=== PATIENT | male | born 1930 | race Caucasian/White ===

== ENCOUNTER 2018-01-07 12:20 | Inpatient (IN) ==
[2018-01-07] MEDS ORDERED: SODIUM CHLORIDE 0.9% 1,000 ML IV STA (12:52)
[2018-01-07] MEDS ORDERED: FUROSEMIDE 100 MG/10 ML VIAL IV STA (14:07)
[2018-01-07 14:18] LABS: Basophils % 0.2 % (0.0-0.8); Eosinophils % 0.5 % (0.00-10.9); Hematocrit 32.7 VOL% (42.0-52.0); Hemoglobin 10.1 GM/DL (14.0-18.0); Immature Granulocytes % 0.3 %; Immature Granulocytes Absolute 0.02 #; Lymphocytes # 0.7 10*3/uL (1.4-4.0); Lymphocytes % 11.1 % (21.2-54.2); Mean Corpuscular HGB Conc 30.9 GM/DL (32-36); Mean Corpuscular Hemoglobin 29 PG (27-34); Mean Corpuscular Volume 94.8 FL (87-102); Mean Platelet Volume 9.3 FL (9.6-12.0); Monocytes # 0.4 10*3/uL (0.11-0.8); Monocytes % 7.2 % (1.7-12.7); Neutrophils # 4.9 10*3/uL (1.4-7.4); Neutrophils % 80.7 % (38.7-73.9); Platelet Count 354 T/CUMM (130-400); Red Blood Count 3.45 MC/CUMM (3.8-5.5); Red Cell Distribution Width 13.2 % (9.3-17.3)
[2018-01-07 14:26] LABS: PT Patient Result 10.7 SECS; Partial Thromboplastin Time 27.1 SECS (0-40)
[2018-01-07] MEDS ORDERED: ACETAMINOPHEN 325 MG TABLET PO PRN (15:01)
[2018-01-07 15:55] LABS: Albumin 3.1 G/DL (3.4-5.0); Bilirubin,Total 0.6 MG/DL (0.2-1.0); Calcium 10.1 MG/DL (8.5-10.1); Osmolality,Calculated 288.4 MOS/KG (273-304); Potassium 5.1 MMOL/L (3.5-5.1); Total Protein 7.5 G/DL (6.4-8.3)
[2018-01-07 16:26] LABS: Apearance,Urine CLEAR (Clear); Bilirubin,Urine Negative (Negative); Blood, Urine Negative (Negative); Glucose,Urine (UA) Negative (Negative); Hyaline Casts,Urine 1 /LPF (0-3); Ketones,Urine Negative (Negative); Nitrite,Urine Negative (Negative); Protein,Urine Negative; Urine Color Yellow (Yellow); Urine Specific Gravity 1.011 (1.001-1.035); Urine Urobilinogen < 2.0 EU/DL (0.2-1.0); WBC,Urine <1 /HPF (0-6)
[2018-01-07] MEDS: SODIUM CHLORIDE 0.9% 1,000 ML IV SCH (18:38)
[2018-01-07] MEDS: ENOXAPARIN 40 MG/0.4 ML SYRINGE SUBCUT SCH (18:38)
[2018-01-08] MEDS: SODIUM CHLORIDE 0.9% 1,000 ML IV SCH ×3 (02:33→22:06)
[2018-01-08 06:06] LABS: Calcium 9.8 MG/DL (8.5-10.1); Osmolality,Calculated 287.3 MOS/KG (273-304)
[2018-01-08] MEDS ORDERED: DIAZEPAM 5 MG TABLET PO ONE (09:32)
[2018-01-08] MEDS ORDERED: MORPHINE 4 MG/1 ML VIAL IV ONE (09:35)
[2018-01-08] MEDS: MORPHINE 4 MG/1 ML VIAL IV PRN (10:07)
[2018-01-08] MEDS: predniSONE 5 MG TABLET PO SCH (12:08)
[2018-01-08] MEDS: GABAPENTIN 100 MG CAPSULE PO SCH ×2 (12:08→20:28)
[2018-01-08] MEDS: TAMSULOSIN 0.4 MG CAPSULE PO SCH ×2 (12:08→20:28)
[2018-01-08] MEDS: ATORVASTATIN 20 MG TABLET PO SCH (12:08)
[2018-01-08] MEDS: PANTOPRAZOLE 40 MG TABLET PO SCH ×2 (12:08→20:28)
[2018-01-08] MEDS: ENOXAPARIN 40 MG/0.4 ML SYRINGE SUBCUT SCH (17:30)
[2018-01-08] MEDS ORDERED: MIRTAZAPINE 30 MG TABLET PO SCH (21:00)
[2018-01-09 05:45] LABS: Basophils % 0.4 % (0.0-0.8); Eosinophils # 0.2 10*3/uL (0.0-0.87); Eosinophils % 3.2 % (0.00-10.9); Hematocrit 28.6 VOL% (42.0-52.0); Hemoglobin 8.8 GM/DL (14.0-18.0); Immature Granulocytes % 0.4 %; Immature Granulocytes Absolute 0.02 #; Lymphocytes # 1.2 10*3/uL (1.4-4.0); Lymphocytes % 26.2 % (21.2-54.2); Mean Corpuscular HGB Conc 30.8 GM/DL (32-36); Mean Corpuscular Hemoglobin 30 PG (27-34); Mean Corpuscular Volume 96.3 FL (87-102); Mean Platelet Volume 9.4 FL (9.6-12.0); Monocytes # 0.7 10*3/uL (0.11-0.8); Monocytes % 13.8 % (1.7-12.7); Neutrophils # 2.6 10*3/uL (1.4-7.4); Platelet Count 304 T/CUMM (130-400); Red Blood Count 2.97 MC/CUMM (3.8-5.5); Red Cell Distribution Width 13.4 % (9.3-17.3); White Blood Count 4.7 T/CUMM (4-12)
[2018-01-09 06:08] LABS: Calcium 9.1 MG/DL (8.5-10.1); Osmolality,Calculated 289.8 MOS/KG (273-304); Potassium 3.8 MMOL/L (3.5-5.1)
[2018-01-09] MEDS: SODIUM CHLORIDE 0.9% 1,000 ML IV SCH ×2 (06:14→20:31)
[2018-01-09] MEDS: predniSONE 5 MG TABLET PO SCH (09:14)
[2018-01-09] MEDS: TAMSULOSIN 0.4 MG CAPSULE PO SCH ×2 (09:15→20:32)
[2018-01-09] MEDS: ATORVASTATIN 20 MG TABLET PO SCH (09:15)
[2018-01-09] MEDS: GABAPENTIN 100 MG CAPSULE PO SCH ×2 (09:15→20:32)
[2018-01-09] MEDS: PANTOPRAZOLE 40 MG TABLET PO SCH ×2 (09:16→20:33)
[2018-01-09] MEDS: ENOXAPARIN 40 MG/0.4 ML SYRINGE SUBCUT SCH (15:58)
[2018-01-10] MEDS: PANTOPRAZOLE 40 MG TABLET PO SCH ×2 (09:09→21:10)
[2018-01-10] MEDS: ATORVASTATIN 20 MG TABLET PO SCH (09:09)
[2018-01-10] MEDS: GABAPENTIN 100 MG CAPSULE PO SCH ×2 (09:09→21:10)
[2018-01-10] MEDS: predniSONE 5 MG TABLET PO SCH (09:09)
[2018-01-10] MEDS: TAMSULOSIN 0.4 MG CAPSULE PO SCH ×2 (09:09→21:10)
[2018-01-10] MEDS: ENOXAPARIN 40 MG/0.4 ML SYRINGE SUBCUT SCH (16:57)
[2018-01-10] MEDS ORDERED: MAGNESIUM CITRATE 300 ML BOTTLE PO ONE (18:15)
[2018-01-11 06:44] LABS: Hematocrit 29.3 VOL% (42.0-52.0); Hemoglobin 9.1 GM/DL (14.0-18.0); Red Blood Count 3.08 MC/CUMM (3.8-5.5); White Blood Count 9.7 T/CUMM (4-12)
[2018-01-11 06:45] LABS: Basophils % 0.1 % (0.0-0.8); Eosinophils % 0.3 % (0.00-10.9); Immature Granulocytes % 0.5 %; Immature Granulocytes Absolute 0.05 #; Lymphocytes # 0.5 10*3/uL (1.4-4.0); Lymphocytes % 5.1 % (21.2-54.2); Mean Corpuscular HGB Conc 31.1 GM/DL (32-36); Mean Corpuscular Hemoglobin 30 PG (27-34); Mean Corpuscular Volume 95.1 FL (87-102); Mean Platelet Volume 9.1 FL (9.6-12.0); Monocytes # 0.5 10*3/uL (0.11-0.8); Monocytes % 5.2 % (1.7-12.7); Neutrophils # 8.6 10*3/uL (1.4-7.4); Neutrophils % 88.8 % (38.7-73.9); Platelet Count 315 T/CUMM (130-400); Red Cell Distribution Width 13.3 % (9.3-17.3)
[2018-01-11 07:14] LABS: Albumin 2.6 G/DL (3.4-5.0); Bilirubin,Total 0.6 MG/DL (0.2-1.0); Osmolality,Calculated 292.8 MOS/KG (273-304); Potassium 4.2 MMOL/L (3.5-5.1); Total Protein 6.5 G/DL (6.4-8.3)
[2018-01-11] MEDS: TAMSULOSIN 0.4 MG CAPSULE PO SCH ×2 (08:46→20:39)
[2018-01-11] MEDS: PANTOPRAZOLE 40 MG TABLET PO SCH ×2 (08:46→20:39)
[2018-01-11] MEDS: GABAPENTIN 100 MG CAPSULE PO SCH ×2 (08:46→20:38)
[2018-01-11] MEDS: predniSONE 5 MG TABLET PO SCH (08:46)
[2018-01-11] MEDS: ATORVASTATIN 20 MG TABLET PO SCH (08:46)
[2018-01-11] MEDS ORDERED: DEXAMETHASONE INJ 20 MG in SODIUM CHLORIDE 0.9% 50 ML IV ONE (11:16)
[2018-01-11] MEDS ORDERED: GRANISETRON 1 MG/1 ML VIAL IV SCH (11:30)
[2018-01-11] MEDS: ETOPOSIDE 120 MG in SODIUM CHLORIDE 0.9% 500 ML IV SCH (14:34)
[2018-01-11] MEDS: ENOXAPARIN 40 MG/0.4 ML SYRINGE SUBCUT SCH (14:48)
[2018-01-12 04:44] LABS: Hematocrit 27.9 VOL% (42.0-52.0); Hemoglobin 8.7 GM/DL (14.0-18.0); Immature Granulocytes % 0.6 %; Immature Granulocytes Absolute 0.05 #; Lymphocytes # 0.7 10*3/uL (1.4-4.0); Lymphocytes % 8.7 % (21.2-54.2); Mean Corpuscular HGB Conc 31.2 GM/DL (32-36); Mean Corpuscular Hemoglobin 30 PG (27-34); Mean Corpuscular Volume 95.2 FL (87-102); Mean Platelet Volume 9.5 FL (9.6-12.0); Monocytes # 0.5 10*3/uL (0.11-0.8); Monocytes % 5.6 % (1.7-12.7); Neutrophils % 85.1 % (38.7-73.9); Platelet Count 302 T/CUMM (130-400); Red Blood Count 2.93 MC/CUMM (3.8-5.5); Red Cell Distribution Width 13.2 % (9.3-17.3); White Blood Count 8.2 T/CUMM (4-12)
[2018-01-12 05:07] LABS: Uric Acid 6.3 MG/DL (3.5-7.2)
[2018-01-12 05:10] LABS: Albumin 2.6 G/DL (3.4-5.0); Bilirubin,Total 0.6 MG/DL (0.2-1.0); Calcium 9.4 MG/DL (8.5-10.1); Osmolality,Calculated 287.5 MOS/KG (273-304); Potassium 4.9 MMOL/L (3.5-5.1); Total Protein 6.9 G/DL (6.4-8.3)
[2018-01-12] MEDS ORDERED: CARBOPLATIN IV ONE (09:00)
[2018-01-12] MEDS ORDERED: SODIUM CHLORIDE 0.9% IV ONE (09:00)
[2018-01-12] MEDS: ATORVASTATIN 20 MG TABLET PO SCH (09:07)
[2018-01-12] MEDS: PANTOPRAZOLE 40 MG TABLET PO SCH ×2 (09:08→20:34)
[2018-01-12] MEDS: TAMSULOSIN 0.4 MG CAPSULE PO SCH ×2 (09:08→20:34)
[2018-01-12] MEDS: GABAPENTIN 100 MG CAPSULE PO SCH ×2 (09:08→20:34)
[2018-01-12] MEDS: predniSONE 5 MG TABLET PO SCH (09:08)
[2018-01-12] MEDS: GRANISETRON 1 MG/1 ML VIAL IV SCH (11:45)
[2018-01-12] MEDS: DEXAMETHASONE INJ 20 MG in SODIUM CHLORIDE 0.9% 50 ML IV SCH ×2 (11:45→15:00)
[2018-01-12] MEDS: ENOXAPARIN 80 MG/0.8 ML SYRINGE SUBCUT SCH (14:59)
[2018-01-12] MEDS: ETOPOSIDE 120 MG in SODIUM CHLORIDE 0.9% 500 ML IV SCH (16:22)
[2018-01-13] MEDS: ENOXAPARIN 80 MG/0.8 ML SYRINGE SUBCUT SCH ×2 (02:44→15:10)
[2018-01-13 05:27] LABS: Basophils % 0.1 % (0.0-0.8); Hematocrit 29.3 VOL% (42.0-52.0); Immature Granulocytes % 0.6 %; Immature Granulocytes Absolute 0.04 #; Lymphocytes # 0.6 10*3/uL (1.4-4.0); Lymphocytes % 8.2 % (21.2-54.2); Mean Corpuscular HGB Conc 30.7 GM/DL (32-36); Mean Corpuscular Hemoglobin 29 PG (27-34); Mean Corpuscular Volume 94.5 FL (87-102); Mean Platelet Volume 9.6 FL (9.6-12.0); Monocytes # 0.3 10*3/uL (0.11-0.8); Monocytes % 3.6 % (1.7-12.7); Neutrophils % 87.5 % (38.7-73.9); Platelet Count 319 T/CUMM (130-400); Red Cell Distribution Width 13.4 % (9.3-17.3); White Blood Count 6.9 T/CUMM (4-12)
[2018-01-13 05:43] LABS: Albumin 2.9 G/DL (3.4-5.0); Bilirubin,Total 0.7 MG/DL (0.2-1.0); Calcium 10.2 MG/DL (8.5-10.1); Osmolality,Calculated 289.8 MOS/KG (273-304); Potassium 5.3 MMOL/L (3.5-5.1); Total Protein 7.4 G/DL (6.4-8.3)
[2018-01-13 06:19] LABS: Uric Acid 6.7 MG/DL (3.5-7.2)
[2018-01-13] MEDS: TAMSULOSIN 0.4 MG CAPSULE PO SCH ×2 (08:47→21:25)
[2018-01-13] MEDS: predniSONE 5 MG TABLET PO SCH (08:47)
[2018-01-13] MEDS: PANTOPRAZOLE 40 MG TABLET PO SCH ×2 (08:47→21:25)
[2018-01-13] MEDS: ATORVASTATIN 20 MG TABLET PO SCH (08:47)
[2018-01-13] MEDS: GABAPENTIN 100 MG CAPSULE PO SCH ×2 (08:47→21:23)
[2018-01-13] MEDS: MORPHINE 4 MG/1 ML VIAL IV PRN (08:51)
[2018-01-13] MEDS ORDERED: GRANISETRON 1 MG/1 ML VIAL IV SCH (11:37)
[2018-01-13] MEDS: DEXAMETHASONE INJ 20 MG in SODIUM CHLORIDE 0.9% 50 ML IV SCH (12:32)
[2018-01-13] MEDS: GRANISETRON 1 MG/1 ML VIAL IV SCH (12:32)
[2018-01-13] MEDS: ETOPOSIDE 120 MG in SODIUM CHLORIDE 0.9% 500 ML IV SCH (13:13)
[2018-01-13] MEDS: ATEZOLIZUMAB 1,200 MG in SODIUM CHLORIDE 0.9% 250 ML IV ONE ×2 (15:10→17:47)
[2018-01-13] MEDS ORDERED: SKIN HEALING OINT (AQUAPHOR) 50 GM TUBE TOP SCH (16:00)
[2018-01-13] MEDS: BACITRACIN OINT 0.9 GM PACK TOP SCH (17:47)
[2018-01-14] MEDS: ENOXAPARIN 80 MG/0.8 ML SYRINGE SUBCUT SCH (01:41)
[2018-01-14 05:06] LABS: Hematocrit 28.4 VOL% (42.0-52.0); Hemoglobin 8.6 GM/DL (14.0-18.0); Immature Granulocytes % 0.6 %; Immature Granulocytes Absolute 0.05 #; Lymphocytes # 0.5 10*3/uL (1.4-4.0); Lymphocytes % 5.9 % (21.2-54.2); Mean Corpuscular HGB Conc 30.3 GM/DL (32-36); Mean Corpuscular Hemoglobin 29 PG (27-34); Mean Corpuscular Volume 94.4 FL (87-102); Mean Platelet Volume 9.5 FL (9.6-12.0); Monocytes # 0.3 10*3/uL (0.11-0.8); Monocytes % 3.7 % (1.7-12.7); Neutrophils # 7.5 10*3/uL (1.4-7.4); Neutrophils % 89.8 % (38.7-73.9); Platelet Count 423 T/CUMM (130-400); Red Blood Count 3.01 MC/CUMM (3.8-5.5); Red Cell Distribution Width 13.5 % (9.3-17.3); White Blood Count 8.4 T/CUMM (4-12)
[2018-01-14 05:39] LABS: Uric Acid 7.3 MG/DL (3.5-7.2)
[2018-01-14 05:43] LABS: Albumin 2.9 G/DL (3.4-5.0); Bilirubin,Total 0.5 MG/DL (0.2-1.0); Calcium 9.9 MG/DL (8.5-10.1); Osmolality,Calculated 292.8 MOS/KG (273-304); Potassium 5.2 MMOL/L (3.5-5.1); Total Protein 7.4 G/DL (6.4-8.3)
[2018-01-14] MEDS ORDERED: FUROSEMIDE 40 MG/4 ML VIAL IV ONE (07:32)
[2018-01-14] MEDS: TAMSULOSIN 0.4 MG CAPSULE PO SCH ×2 (09:46→20:53)
[2018-01-14] MEDS: GABAPENTIN 100 MG CAPSULE PO SCH (09:46)
[2018-01-14] MEDS: PANTOPRAZOLE 40 MG TABLET PO SCH ×2 (09:46→20:53)
[2018-01-14] MEDS: ATORVASTATIN 20 MG TABLET PO SCH (09:47)
[2018-01-14] MEDS: predniSONE 5 MG TABLET PO SCH (09:47)
[2018-01-14] MEDS: BACITRACIN OINT 0.9 GM PACK TOP SCH (09:47)
[2018-01-14] MEDS: APIXABAN 5 MG TABLET PO SCH ×2 (17:54→20:54)
[2018-01-14] MEDS: GABAPENTIN 300 MG CAPSULE PO SCH (20:53)
[2018-01-14] MEDS: oxyCODONE/ACETAMINOPHEN 5-325 MG TABLET PO SCH (20:54)
[2018-01-15] MEDS: oxyCODONE/ACETAMINOPHEN 5-325 MG TABLET PO SCH ×4 (05:00→19:04)
[2018-01-15 05:02] LABS: Eosinophils % 0.8 % (0.00-10.9); Hematocrit 25.8 VOL% (42.0-52.0); Immature Granulocytes % 0.6 %; Immature Granulocytes Absolute 0.03 #; Lymphocytes # 0.7 10*3/uL (1.4-4.0); Lymphocytes % 14.5 % (21.2-54.2); Mean Corpuscular Hemoglobin 29 PG (27-34); Mean Corpuscular Volume 94.9 FL (87-102); Mean Platelet Volume 9.4 FL (9.6-12.0); Monocytes # 0.1 10*3/uL (0.11-0.8); Monocytes % 1.4 % (1.7-12.7); Neutrophils # 4.2 10*3/uL (1.4-7.4); Neutrophils % 82.7 % (38.7-73.9); Platelet Count 347 T/CUMM (130-400); Red Blood Count 2.72 MC/CUMM (3.8-5.5); Red Cell Distribution Width 13.4 % (9.3-17.3); White Blood Count 5.1 T/CUMM (4-12)
[2018-01-15 05:18] LABS: Albumin 2.5 G/DL (3.4-5.0); Bilirubin,Total 0.9 MG/DL (0.2-1.0); Calcium 9.2 MG/DL (8.5-10.1); Osmolality,Calculated 291.7 MOS/KG (273-304); Potassium 4.8 MMOL/L (3.5-5.1); Total Protein 6.5 G/DL (6.4-8.3)
[2018-01-15 05:40] LABS: Hypochromasia 1+; Ovalocytes Slight; Platelet Estimate Adequate
[2018-01-15 05:42] LABS: Uric Acid 8.3 MG/DL (3.5-7.2)
[2018-01-15] MEDS ORDERED: SODIUM CHLORIDE 0.9% 1,000 ML IV PRN (08:13)
[2018-01-15] MEDS: GABAPENTIN 100 MG CAPSULE PO SCH (09:02)
[2018-01-15] MEDS: PANTOPRAZOLE 40 MG TABLET PO SCH ×2 (09:02→21:01)
[2018-01-15] MEDS: ATORVASTATIN 20 MG TABLET PO SCH (09:02)
[2018-01-15] MEDS: TAMSULOSIN 0.4 MG CAPSULE PO SCH ×2 (09:02→21:01)
[2018-01-15] MEDS: predniSONE 5 MG TABLET PO SCH (09:02)
[2018-01-15] MEDS: APIXABAN 5 MG TABLET PO SCH (11:29)
[2018-01-15] MEDS: BACITRACIN OINT 0.9 GM PACK TOP SCH (16:53)
[2018-01-15] MEDS: GABAPENTIN 300 MG CAPSULE PO SCH (21:01)
[2018-01-15] MEDS: oxyCODONE ER 10 MG TABLET PO SCH (21:01)
[2018-01-15] MEDS: APIXABAN 2.5 MG TABLET PO SCH (21:02)
[2018-01-16 05:26] LABS: Albumin 2.6 G/DL (3.4-5.0); Bilirubin,Total 1.7 MG/DL (0.2-1.0); Calcium 9.3 MG/DL (8.5-10.1); Osmolality,Calculated 286.8 MOS/KG (273-304); Potassium 5.1 MMOL/L (3.5-5.1); Total Protein 6.6 G/DL (6.4-8.3)
[2018-01-16 05:40] LABS: Basophils % 0.2 % (0.0-0.8); Eosinophils # 0.2 10*3/uL (0.0-0.87); Hematocrit 32.6 VOL% (42.0-52.0); Immature Granulocytes % 0.4 %; Immature Granulocytes Absolute 0.02 #; Lymphocytes # 0.7 10*3/uL (1.4-4.0); Lymphocytes % 13.6 % (21.2-54.2); Mean Corpuscular HGB Conc 31.6 GM/DL (32-36); Mean Corpuscular Hemoglobin 29 PG (27-34); Mean Corpuscular Volume 93.1 FL (87-102); Mean Platelet Volume 10.1 FL (9.6-12.0); Monocytes % 0.6 % (1.7-12.7); Neutrophils # 4.3 10*3/uL (1.4-7.4); Neutrophils % 81.2 % (38.7-73.9); Red Cell Distribution Width 13.9 % (9.3-17.3); White Blood Count 5.3 T/CUMM (4-12)
[2018-01-16 05:43] LABS: Hemoglobin 10.3 GM/DL (14.0-18.0)
[2018-01-16 05:44] LABS: Platelet Count 259 T/CUMM (130-400)
[2018-01-16 06:04] LABS: Band Neutrophils 1 % (0-10); Eosinophils 6 % (0-10); Hypochromasia 1+; Lymphocytes 9 % (20-55); Ovalocytes Slight; Platelet Estimate Adequate; Segmented Neutrophils 84 % (50-85); Total Cells Counted 100
[2018-01-16] MEDS ORDERED: LOPERAMIDE 2 MG CAPSULE PO PRN ×2 (08:06)
[2018-01-16] MEDS ORDERED: ONDANSETRON 4 MG/2 ML VIAL IV PRN (08:06)
[2018-01-16] MEDS ORDERED: traMADol 50 MG TABLET PO PRN (08:06)
[2018-01-16] MEDS ORDERED: ACETAMINOPHEN 325 MG TABLET PO PRN (08:06)
[2018-01-16] MEDS ORDERED: MYLANTA/LIDO VISC 2:1 300 ML BOTTLE SWISH/SPIT PRN (08:06)
[2018-01-16] MEDS ORDERED: ALUMINUM/MAGNES/SIMETH MAX STR 30 ML UDCUP PO PRN (08:06)
[2018-01-16] MEDS ORDERED: chlorproMAZINE INJ 25 MG in SODIUM CHLORIDE 0.9% 100 ML IV PRN (08:06)
[2018-01-16] MEDS ORDERED: MYLANTA/LIDO VISC 2:1 300 ML BOTTLE SWISH/SWAL PRN (08:06)
[2018-01-16] MEDS ORDERED: chlorproMAZINE 25 MG TABLET PO PRN (08:06)
[2018-01-16] MEDS ORDERED: LACTULOSE 20 GM/30 ML UDCUP PO PRN (08:06)
[2018-01-16] MEDS ORDERED: BENZTROPINE 2 MG/2 ML AMP IV PRN (08:06)
[2018-01-16] MEDS ORDERED: chlorproMAZINE INJ 50 MG in SODIUM CHLORIDE 0.9% 100 ML IV PRN (08:06)
[2018-01-16] MEDS ORDERED: ALPRAZolam 0.25 MG TABLET PO PRN (08:06)
[2018-01-16] MEDS ORDERED: PROMETHAZINE INJ 25 MG in SODIUM CHLORIDE 0.9% 50 ML IV PRN (08:06)
[2018-01-16] MEDS: PANTOPRAZOLE 40 MG TABLET PO SCH ×2 (08:38→20:16)
[2018-01-16] MEDS: APIXABAN 2.5 MG TABLET PO SCH ×2 (08:38→20:16)
[2018-01-16] MEDS: TAMSULOSIN 0.4 MG CAPSULE PO SCH ×2 (08:38→20:16)
[2018-01-16] MEDS: predniSONE 5 MG TABLET PO SCH (08:38)
[2018-01-16] MEDS: ATORVASTATIN 20 MG TABLET PO SCH (08:38)
[2018-01-16] MEDS: oxyCODONE/ACETAMINOPHEN 5-325 MG TABLET PO SCH ×2 (08:38→17:01)
[2018-01-16] MEDS: guaiFENesin 200 MG/10 ML UDCUP PO PRN (08:38)
[2018-01-16] MEDS: GABAPENTIN 100 MG CAPSULE PO SCH (08:38)
[2018-01-16] MEDS: BACITRACIN OINT 0.9 GM PACK TOP SCH (08:38)
[2018-01-16] MEDS: MORPHINE 4 MG/1 ML VIAL IV PRN ×2 (16:20→21:27)
[2018-01-16] MEDS: oxyCODONE ER 10 MG TABLET PO SCH (20:16)
[2018-01-16] MEDS: GABAPENTIN 300 MG CAPSULE PO SCH (20:18)
[2018-01-16 21:00] LABS: Apearance,Urine CLEAR (Clear); Bacteria,Urine Occasional /HPF (Few); Bilirubin,Urine Negative (Negative); Blood, Urine Negative (Negative); Glucose,Urine (UA) Negative (Negative); Ketones,Urine Negative (Negative); Nitrite,Urine Negative (Negative); Protein,Urine 30 MG/DL; RBC,Urine 3 /HPF (0-4); Urine Color Yellow (Yellow); Urine Specific Gravity 1.015 (1.001-1.035); Urine Urobilinogen < 2.0 EU/DL (0.2-1.0); WBC,Urine 9 /HPF (0-6)
[2018-01-17 06:13] LABS: Basophils % 0.4 % (0.0-0.8); Eosinophils # 0.2 10*3/uL (0.0-0.87); Eosinophils % 2.1 % (0.00-10.9); Hematocrit 31.7 VOL% (42.0-52.0); Immature Granulocytes % 1.7 %; Immature Granulocytes Absolute 0.12 #; Lymphocytes # 0.4 10*3/uL (1.4-4.0); Lymphocytes % 5.4 % (21.2-54.2); Mean Corpuscular HGB Conc 31.5 GM/DL (32-36); Mean Corpuscular Hemoglobin 30 PG (27-34); Mean Corpuscular Volume 94.1 FL (87-102); Mean Platelet Volume 10.6 FL (9.6-12.0); Monocytes % 0.6 % (1.7-12.7); Neutrophils # 6.4 10*3/uL (1.4-7.4); Neutrophils % 89.8 % (38.7-73.9); Platelet Count 213 T/CUMM (130-400); Red Blood Count 3.37 MC/CUMM (3.8-5.5); Red Cell Distribution Width 13.6 % (9.3-17.3); White Blood Count 7.2 T/CUMM (4-12)
[2018-01-17 06:30] LABS: Albumin 2.5 G/DL (3.4-5.0); Bilirubin,Total 0.7 MG/DL (0.2-1.0); Osmolality,Calculated 291.5 MOS/KG (273-304); Potassium 5.1 MMOL/L (3.5-5.1); Total Protein 6.9 G/DL (6.4-8.3)
[2018-01-17 09:00] LABS: ABG Base Excess 3.3 MMOL/L (-2.5-2.5); ABG HCO3 27.2 MMOL/L (20-26); ABG Oxygen Saturation 90.9 % (95-100); ABG PCO2 47.7 MM HG (35-48); ABG PO2 60.5 MM HG (80-95); ABG TCO2 26.3 MMOL/L (23-27)
[2018-01-17 09:56] LABS: Hypochromasia 1+; Microcytosis 1+; Platelet Estimate Normal; Polychromasia Slight
[2018-01-17] MEDS: PANTOPRAZOLE 40 MG TABLET PO SCH ×2 (10:52→20:28)
[2018-01-17] MEDS: predniSONE 5 MG TABLET PO SCH (10:52)
[2018-01-17] MEDS: cefTRIAXone 1,000 MG in SYRINGE 1 EACH IV SCH (10:53)
[2018-01-17] MEDS: ATORVASTATIN 20 MG TABLET PO SCH (10:53)
[2018-01-17] MEDS: GABAPENTIN 100 MG CAPSULE PO SCH (10:53)
[2018-01-17] MEDS: oxyCODONE/ACETAMINOPHEN 5-325 MG TABLET PO SCH ×2 (10:53→18:05)
[2018-01-17] MEDS: APIXABAN 2.5 MG TABLET PO SCH ×2 (10:53→20:28)
[2018-01-17] MEDS: BACITRACIN OINT 0.9 GM PACK TOP SCH (10:53)
[2018-01-17] MEDS: TAMSULOSIN 0.4 MG CAPSULE PO SCH ×2 (10:54→20:28)
[2018-01-17] MEDS: oxyCODONE ER 10 MG TABLET PO SCH (20:27)
[2018-01-17] MEDS: GABAPENTIN 300 MG CAPSULE PO SCH (20:28)
[2018-01-17] MEDS: TEMAZEPAM 7.5 MG CAPSULE PO PRN (20:32)
[2018-01-18] MEDS: cefTRIAXone 1,000 MG in SYRINGE 1 EACH IV SCH (09:49)
[2018-01-18] MEDS: PANTOPRAZOLE 40 MG TABLET PO SCH ×2 (09:50→20:31)
[2018-01-18] MEDS: APIXABAN 2.5 MG TABLET PO SCH ×2 (09:50→20:31)
[2018-01-18] MEDS: oxyCODONE/ACETAMINOPHEN 5-325 MG TABLET PO SCH ×2 (09:50→18:09)
[2018-01-18] MEDS: ATORVASTATIN 20 MG TABLET PO SCH (09:50)
[2018-01-18] MEDS: predniSONE 5 MG TABLET PO SCH (09:50)
[2018-01-18] MEDS: TAMSULOSIN 0.4 MG CAPSULE PO SCH ×2 (09:50→20:31)
[2018-01-18] MEDS: GABAPENTIN 100 MG CAPSULE PO SCH (09:50)
[2018-01-18] MEDS: BACITRACIN OINT 0.9 GM PACK TOP SCH (09:51)
[2018-01-18] MEDS ORDERED: LINEZOLID 600 MG TABLET PO SCH (10:30)
[2018-01-18] MEDS: AMOXICILLIN 875 MG TABLET PO SCH ×2 (18:09→20:31)
[2018-01-18] MEDS: TEMAZEPAM 7.5 MG CAPSULE PO PRN (20:31)
[2018-01-18] MEDS: GABAPENTIN 300 MG CAPSULE PO SCH (20:31)
[2018-01-18] MEDS: oxyCODONE ER 10 MG TABLET PO SCH (20:31)
[2018-01-19 05:10] LABS: Basophils % 0.5 % (0.0-0.8); Eosinophils # 0.1 10*3/uL (0.0-0.87); Eosinophils % 5.2 % (0.00-10.9); Hematocrit 28.6 VOL% (42.0-52.0); Hemoglobin 8.9 GM/DL (14.0-18.0); Immature Granulocytes % 1.4 %; Immature Granulocytes Absolute 0.03 #; Lymphocytes # 0.7 10*3/uL (1.4-4.0); Lymphocytes % 32.5 % (21.2-54.2); Mean Corpuscular HGB Conc 31.1 GM/DL (32-36); Mean Corpuscular Hemoglobin 30 PG (27-34); Mean Corpuscular Volume 95.3 FL (87-102); Mean Platelet Volume 9.5 FL (9.6-12.0); Monocytes % 1.9 % (1.7-12.7); Neutrophils # 1.2 10*3/uL (1.4-7.4); Neutrophils % 58.5 % (38.7-73.9); Platelet Count 151 T/CUMM (130-400); Red Cell Distribution Width 13.1 % (9.3-17.3); White Blood Count 2.1 T/CUMM (4-12)
[2018-01-19 05:47] LABS: Albumin 2.1 G/DL (3.4-5.0); Bilirubin,Total 0.5 MG/DL (0.2-1.0); Calcium 8.6 MG/DL (8.5-10.1); Osmolality,Calculated 288.5 MOS/KG (273-304); Potassium 4.2 MMOL/L (3.5-5.1); Total Protein 6.2 G/DL (6.4-8.3)
[2018-01-19 05:49] LABS: Hypochromasia 1+; Microcytosis Slight; Ovalocytes Slight; Platelet Estimate Normal
[2018-01-19] MEDS: AMOXICILLIN 875 MG TABLET PO SCH ×2 (09:11→20:02)
[2018-01-19] MEDS: APIXABAN 2.5 MG TABLET PO SCH ×2 (09:11→20:03)
[2018-01-19] MEDS: ATORVASTATIN 20 MG TABLET PO SCH (09:11)
[2018-01-19] MEDS: FILGRASTIM-SNDZ 300 MCG/0.5 ML SYRINGE SUBCUT SCH (09:11)
[2018-01-19] MEDS: PANTOPRAZOLE 40 MG TABLET PO SCH ×2 (09:12→20:03)
[2018-01-19] MEDS: BACITRACIN OINT 0.9 GM PACK TOP SCH (09:12)
[2018-01-19] MEDS: GABAPENTIN 100 MG CAPSULE PO SCH (09:12)
[2018-01-19] MEDS: TAMSULOSIN 0.4 MG CAPSULE PO SCH ×2 (09:12→20:02)
[2018-01-19] MEDS: predniSONE 5 MG TABLET PO SCH (09:12)
[2018-01-19] MEDS: oxyCODONE/ACETAMINOPHEN 5-325 MG TABLET PO SCH ×2 (09:12→18:05)
[2018-01-19] MEDS: diphenhydrAMINE CAP 25 MG CAPSULE PO PRN (15:10)
[2018-01-19] MEDS: oxyCODONE ER 10 MG TABLET PO SCH (20:02)
[2018-01-19] MEDS: GABAPENTIN 300 MG CAPSULE PO SCH (20:03)
[2018-01-20 04:59] LABS: Eosinophils # 0.1 10*3/uL (0.0-0.87); Eosinophils % 5.9 % (0.00-10.9); Hematocrit 27.2 VOL% (42.0-52.0); Hemoglobin 8.4 GM/DL (14.0-18.0); Immature Granulocytes % 0.8 %; Immature Granulocytes Absolute 0.01 #; Lymphocytes # 0.6 10*3/uL (1.4-4.0); Lymphocytes % 51.7 % (21.2-54.2); Mean Corpuscular HGB Conc 30.9 GM/DL (32-36); Mean Corpuscular Hemoglobin 29 PG (27-34); Mean Corpuscular Volume 92.8 FL (87-102); Mean Platelet Volume 9.4 FL (9.6-12.0); Monocytes % 2.5 % (1.7-12.7); Neutrophils # 0.5 10*3/uL (1.4-7.4); Neutrophils % 39.1 % (38.7-73.9); Platelet Count 121 T/CUMM (130-400); Red Blood Count 2.93 MC/CUMM (3.8-5.5); Red Cell Distribution Width 12.8 % (9.3-17.3); White Blood Count 1.2 T/CUMM (4-12)
[2018-01-20 05:33] LABS: Band Neutrophils 1 % (0-10); Eosinophils 8 % (0-10); Hypochromasia 1+; Lymphocytes 59 % (20-55); Ovalocytes Slight; Segmented Neutrophils 25 % (50-85); Total Cells Counted 100
[2018-01-20 05:34] LABS: Atypical Lymphocytes Few; Microcytosis Slight; Platelet Estimate Normal
[2018-01-20 05:41] LABS: Albumin 2.1 G/DL (3.4-5.0); Bilirubin,Total 0.7 MG/DL (0.2-1.0); Calcium 8.8 MG/DL (8.5-10.1); Osmolality,Calculated 283.8 MOS/KG (273-304); Potassium 4.3 MMOL/L (3.5-5.1)
[2018-01-20] MEDS: MAGNESIUM HYDROXIDE SUSP 30 ML UDCUP PO PRN (05:54)
[2018-01-20] MEDS ORDERED: MEROPENEM 1,000 MG in SODIUM CHLORIDE 0.9% 100 ML IV SCH (08:00)
[2018-01-20] MEDS ORDERED: SODIUM CHLORIDE 0.9% 1,000 ML IV PRN (08:53)
[2018-01-20] MEDS: APIXABAN 2.5 MG TABLET PO SCH ×2 (09:12→20:27)
[2018-01-20] MEDS: PANTOPRAZOLE 40 MG TABLET PO SCH ×2 (09:12→20:26)
[2018-01-20] MEDS: predniSONE 5 MG TABLET PO SCH (09:13)
[2018-01-20] MEDS: ATORVASTATIN 20 MG TABLET PO SCH (09:13)
[2018-01-20] MEDS: oxyCODONE/ACETAMINOPHEN 5-325 MG TABLET PO SCH ×2 (09:14→18:18)
[2018-01-20] MEDS: GABAPENTIN 100 MG CAPSULE PO SCH (09:16)
[2018-01-20] MEDS: TAMSULOSIN 0.4 MG CAPSULE PO SCH ×2 (09:16→20:27)
[2018-01-20] MEDS: FILGRASTIM-SNDZ 300 MCG/0.5 ML SYRINGE SUBCUT SCH (09:34)
[2018-01-20] MEDS: BACITRACIN OINT 0.9 GM PACK TOP SCH (09:36)
[2018-01-20] MEDS: MORPHINE 4 MG/1 ML VIAL IV PRN (13:52)
[2018-01-20] MEDS: LIDOCAINE 5% PATCH TRANSDERM SCH (18:20)
[2018-01-20] MEDS: DOCUSATE/SENNA 50-8.6 MG TABLET PO SCH (20:26)
[2018-01-20] MEDS: AMOXICILLIN 875 MG TABLET PO SCH (20:26)
[2018-01-20] MEDS: oxyCODONE ER 10 MG TABLET PO SCH (20:26)
[2018-01-20] MEDS: GABAPENTIN 300 MG CAPSULE PO SCH (20:27)
[2018-01-20] MEDS: guaiFENesin 200 MG/10 ML UDCUP PO PRN (20:33)
[2018-01-21 04:30] LABS: Eosinophils # 0.1 10*3/uL (0.0-0.87); Eosinophils % 8.7 % (0.00-10.9); Hemoglobin 9.1 GM/DL (14.0-18.0); Immature Granulocytes % 1.4 %; Immature Granulocytes Absolute 0.01 #; Lymphocytes # 0.4 10*3/uL (1.4-4.0); Mean Corpuscular HGB Conc 31.4 GM/DL (32-36); Mean Corpuscular Hemoglobin 29 PG (27-34); Mean Corpuscular Volume 90.9 FL (87-102); Monocytes # 0.1 10*3/uL (0.11-0.8); Monocytes % 7.2 % (1.7-12.7); Neutrophils # 0.2 10*3/uL (1.4-7.4); Neutrophils % 24.7 % (38.7-73.9); Platelet Count 99 T/CUMM (130-400); Red Blood Count 3.19 MC/CUMM (3.8-5.5); Red Cell Distribution Width 13.2 % (9.3-17.3)
[2018-01-21 04:40] LABS: White Blood Count 0.7 T/CUMM (4-12)
[2018-01-21 04:53] LABS: Albumin 1.9 G/DL (3.4-5.0); Bilirubin,Total 1.4 MG/DL (0.2-1.0); Calcium 8.4 MG/DL (8.5-10.1); Osmolality,Calculated 285.5 MOS/KG (273-304); Potassium 4.7 MMOL/L (3.5-5.1); Total Protein 5.5 G/DL (6.4-8.3)
[2018-01-21 05:17] LABS: Eosinophils 14 % (0-10); Hypochromasia 1+; Lymphocytes 52 % (20-55); Ovalocytes Slight; Platelet Estimate Decreased; Segmented Neutrophils 26 % (50-85); Total Cells Counted 100
[2018-01-21 05:18] LABS: Atypical Lymphocytes Few; Microcytosis Slight
[2018-01-21] MEDS: oxyCODONE/ACETAMINOPHEN 5-325 MG TABLET PO SCH ×2 (08:29→18:09)
[2018-01-21] MEDS: GABAPENTIN 100 MG CAPSULE PO SCH (08:30)
[2018-01-21] MEDS: APIXABAN 2.5 MG TABLET PO SCH ×2 (08:30→20:31)
[2018-01-21] MEDS: PANTOPRAZOLE 40 MG TABLET PO SCH ×2 (08:31→20:31)
[2018-01-21] MEDS: TAMSULOSIN 0.4 MG CAPSULE PO SCH ×2 (08:31→20:31)
[2018-01-21] MEDS: predniSONE 5 MG TABLET PO SCH (08:31)
[2018-01-21] MEDS: AMOXICILLIN 875 MG TABLET PO SCH (08:32)
[2018-01-21] MEDS: DOCUSATE/SENNA 50-8.6 MG TABLET PO SCH ×2 (08:34→20:31)
[2018-01-21] MEDS: ATORVASTATIN 20 MG TABLET PO SCH (08:35)
[2018-01-21] MEDS: POLYETHYLENE GLYCOL POWDER 17 GM PACK PO SCH (08:36)
[2018-01-21] MEDS: LIDOCAINE 5% PATCH TRANSDERM SCH (08:39)
[2018-01-21] MEDS: FILGRASTIM-SNDZ 300 MCG/0.5 ML SYRINGE SUBCUT SCH (08:45)
[2018-01-21] MEDS ORDERED: APIXABAN 5 MG TABLET PO SCH (09:00)
[2018-01-21] MEDS ORDERED: CHLORHEXIDINE 4% SOLN 118 ML BOTTLE TOP ONE (09:04)
[2018-01-21] MEDS ORDERED: LEVOFLOXACIN INJ 500 MG in PREMIX 1 EACH IV SCH (09:30)
[2018-01-21] MEDS: BACITRACIN OINT 0.9 GM PACK TOP SCH (10:32)
[2018-01-21] MEDS: LINEZOLID INJ 600 MG in PREMIX 1 EACH IV SCH (16:15)
[2018-01-21] MEDS: oxyCODONE ER 10 MG TABLET PO SCH (20:31)
[2018-01-21] MEDS: GABAPENTIN 300 MG CAPSULE PO SCH (20:31)
[2018-01-21] MEDS: TEMAZEPAM 7.5 MG CAPSULE PO PRN (20:31)
[2018-01-22] MEDS: LINEZOLID INJ 600 MG in PREMIX 1 EACH IV SCH ×2 (02:42→15:21)
[2018-01-22] MEDS: MORPHINE 4 MG/1 ML VIAL IV PRN ×2 (04:55→23:22)
[2018-01-22 05:26] LABS: Eosinophils # 0.1 10*3/uL (0.0-0.87); Eosinophils % 7.6 % (0.00-10.9); Hematocrit 30.3 VOL% (42.0-52.0); Hemoglobin 9.7 GM/DL (14.0-18.0); Immature Granulocytes % 1.5 %; Immature Granulocytes Absolute 0.01 #; Lymphocytes # 0.4 10*3/uL (1.4-4.0); Lymphocytes % 63.6 % (21.2-54.2); Mean Corpuscular Hemoglobin 29 PG (27-34); Mean Corpuscular Volume 90.4 FL (87-102); Mean Platelet Volume 10.2 FL (9.6-12.0); Monocytes # 0.1 10*3/uL (0.11-0.8); Monocytes % 9.1 % (1.7-12.7); Neutrophils # 0.1 10*3/uL (1.4-7.4); Neutrophils % 18.2 % (38.7-73.9); Red Blood Count 3.35 MC/CUMM (3.8-5.5); Red Cell Distribution Width 13.1 % (9.3-17.3)
[2018-01-22 05:44] LABS: White Blood Count 0.7 T/CUMM (4-12)
[2018-01-22 05:45] LABS: Platelet Count 76 T/CUMM (130-400)
[2018-01-22 05:46] LABS: Bilirubin,Total 0.6 MG/DL (0.2-1.0); Calcium 8.7 MG/DL (8.5-10.1); Osmolality,Calculated 279.8 MOS/KG (273-304); Potassium 4.3 MMOL/L (3.5-5.1); Total Protein 5.6 G/DL (6.4-8.3)
[2018-01-22 06:35] LABS: Band Neutrophils 2 % (0-10); Eosinophils 5 % (0-10); Lymphocytes 58 % (20-55); Metamyelocytes 2 %; Segmented Neutrophils 22 % (50-85); Total Cells Counted 101
[2018-01-22 06:36] LABS: Anisocytosis 1+; Hypochromasia 1+; Macrocytosis 1+; Ovalocytes 1+; Platelet Estimate Decreased
[2018-01-22] MEDS: LIDOCAINE 5% PATCH TRANSDERM SCH (08:54)
[2018-01-22] MEDS: FILGRASTIM-SNDZ 300 MCG/0.5 ML SYRINGE SUBCUT SCH (08:54)
[2018-01-22] MEDS: APIXABAN 2.5 MG TABLET PO SCH ×2 (08:55→21:05)
[2018-01-22] MEDS: predniSONE 5 MG TABLET PO SCH (08:55)
[2018-01-22] MEDS: oxyCODONE ER 10 MG TABLET PO SCH ×2 (08:55→21:05)
[2018-01-22] MEDS: POLYETHYLENE GLYCOL POWDER 17 GM PACK PO SCH (08:55)
[2018-01-22] MEDS: oxyCODONE/ACETAMINOPHEN 5-325 MG TABLET PO SCH ×2 (08:57→17:22)
[2018-01-22] MEDS: TAMSULOSIN 0.4 MG CAPSULE PO SCH ×2 (08:57→21:05)
[2018-01-22] MEDS: GABAPENTIN 100 MG CAPSULE PO SCH (08:57)
[2018-01-22] MEDS: DOCUSATE/SENNA 50-8.6 MG TABLET PO SCH ×2 (08:57→21:05)
[2018-01-22] MEDS: PANTOPRAZOLE 40 MG TABLET PO SCH ×2 (08:57→21:05)
[2018-01-22] MEDS: BACITRACIN OINT 0.9 GM PACK TOP SCH (08:58)
[2018-01-22] MEDS: GABAPENTIN 300 MG CAPSULE PO SCH (21:05)
[2018-01-22] MEDS: TEMAZEPAM 7.5 MG CAPSULE PO PRN (21:23)
[2018-01-23] MEDS: MORPHINE 4 MG/1 ML VIAL IV PRN (03:26)
[2018-01-23] MEDS: LINEZOLID INJ 600 MG in PREMIX 1 EACH IV SCH ×2 (03:33→16:06)
[2018-01-23 05:03] LABS: Eosinophils % 7.3 % (0.00-10.9); Hematocrit 31.1 VOL% (42.0-52.0); Hemoglobin 9.8 GM/DL (14.0-18.0); Immature Granulocytes % 2.4 %; Immature Granulocytes Absolute 0.01 #; Lymphocytes # 0.2 10*3/uL (1.4-4.0); Lymphocytes % 51.2 % (21.2-54.2); Mean Corpuscular HGB Conc 31.5 GM/DL (32-36); Mean Corpuscular Hemoglobin 29 PG (27-34); Mean Corpuscular Volume 90.9 FL (87-102); Mean Platelet Volume 10.7 FL (9.6-12.0); Monocytes # 0.1 10*3/uL (0.11-0.8); Monocytes % 17.1 % (1.7-12.7); Neutrophils # 0.1 10*3/uL (1.4-7.4); Platelet Count 86 T/CUMM (130-400); Red Blood Count 3.42 MC/CUMM (3.8-5.5); Red Cell Distribution Width 13.2 % (9.3-17.3)
[2018-01-23 05:07] LABS: White Blood Count 0.4 T/CUMM (4-12)
[2018-01-23 05:29] LABS: Albumin 2.1 G/DL (3.4-5.0); Bilirubin,Total 0.9 MG/DL (0.2-1.0); Osmolality,Calculated 279.7 MOS/KG (273-304); Potassium 4.3 MMOL/L (3.5-5.1); Total Protein 5.6 G/DL (6.4-8.3)
[2018-01-23 06:24] LABS: Eosinophils 17 % (0-10); Lymphocytes 83 % (20-55); Platelet Estimate Decreased; Polychromasia Few; Total Cells Counted 100
[2018-01-23] MEDS: FILGRASTIM-SNDZ 300 MCG/0.5 ML SYRINGE SUBCUT SCH (08:57)
[2018-01-23] MEDS: POLYETHYLENE GLYCOL POWDER 17 GM PACK PO SCH (08:57)
[2018-01-23] MEDS: LIDOCAINE 5% PATCH TRANSDERM SCH (08:57)
[2018-01-23] MEDS: DOCUSATE/SENNA 50-8.6 MG TABLET PO SCH ×2 (08:57→21:01)
[2018-01-23] MEDS: MAGNESIUM HYDROXIDE SUSP 30 ML UDCUP PO PRN (08:58)
[2018-01-23] MEDS: oxyCODONE ER 10 MG TABLET PO SCH (08:58)
[2018-01-23] MEDS: APIXABAN 2.5 MG TABLET PO SCH ×2 (08:58→21:01)
[2018-01-23] MEDS: GABAPENTIN 100 MG CAPSULE PO SCH (08:58)
[2018-01-23] MEDS: predniSONE 5 MG TABLET PO SCH (08:58)
[2018-01-23] MEDS: PANTOPRAZOLE 40 MG TABLET PO SCH ×2 (08:58→21:01)
[2018-01-23] MEDS: BACITRACIN OINT 0.9 GM PACK TOP SCH (08:58)
[2018-01-23] MEDS: TAMSULOSIN 0.4 MG CAPSULE PO SCH ×2 (08:58→21:01)
[2018-01-23] MEDS: oxyCODONE ER 20 MG TABLET PO SCH (21:01)
[2018-01-23] MEDS: GABAPENTIN 300 MG CAPSULE PO SCH (21:01)
[2018-01-24] MEDS: LINEZOLID INJ 600 MG in PREMIX 1 EACH IV SCH ×2 (03:29→15:28)
[2018-01-24 05:38] LABS: Basophils % 1.1 % (0.0-0.8); Eosinophils # 0.1 10*3/uL (0.0-0.87); Eosinophils % 4.4 % (0.00-10.9); Hematocrit 32.3 VOL% (42.0-52.0); Hemoglobin 9.9 GM/DL (14.0-18.0); Immature Granulocytes % 2.8 %; Immature Granulocytes Absolute 0.05 #; Lymphocytes # 0.5 10*3/uL (1.4-4.0); Mean Corpuscular HGB Conc 30.7 GM/DL (32-36); Mean Corpuscular Hemoglobin 28 PG (27-34); Mean Corpuscular Volume 92.3 FL (87-102); Mean Platelet Volume 10.5 FL (9.6-12.0); Monocytes # 0.2 10*3/uL (0.11-0.8); Monocytes % 12.8 % (1.7-12.7); Neutrophils # 0.9 10*3/uL (1.4-7.4); Neutrophils % 48.9 % (38.7-73.9); Platelet Count 114 T/CUMM (130-400); Red Cell Distribution Width 13.4 % (9.3-17.3); White Blood Count 1.8 T/CUMM (4-12)
[2018-01-24 05:57] LABS: Albumin 2.1 G/DL (3.4-5.0); Bilirubin,Total 0.8 MG/DL (0.2-1.0); Calcium 8.9 MG/DL (8.5-10.1); Osmolality,Calculated 278.7 MOS/KG (273-304); Potassium 4.1 MMOL/L (3.5-5.1); Total Protein 5.7 G/DL (6.4-8.3)
[2018-01-24 05:59] LABS: Lymphocytes 38 % (20-55); Total Cells Counted 100
[2018-01-24 06:01] LABS: Atypical Lymphocytes Few; Band Neutrophils 4 % (0-10); Eosinophils 2 % (0-10); Hypochromasia 1+; Microcytosis Slight; Platelet Estimate Decreased; Segmented Neutrophils 45 % (50-85)
[2018-01-24] MEDS: LIDOCAINE 5% PATCH TRANSDERM SCH (08:55)
[2018-01-24] MEDS: FILGRASTIM-SNDZ 300 MCG/0.5 ML SYRINGE SUBCUT SCH (08:55)
[2018-01-24] MEDS: oxyCODONE ER 10 MG TABLET PO SCH (08:55)
[2018-01-24] MEDS: APIXABAN 2.5 MG TABLET PO SCH ×2 (08:56→20:31)
[2018-01-24] MEDS: predniSONE 5 MG TABLET PO SCH (08:56)
[2018-01-24] MEDS: BACITRACIN OINT 0.9 GM PACK TOP SCH (08:56)
[2018-01-24] MEDS: PANTOPRAZOLE 40 MG TABLET PO SCH ×2 (08:56→20:32)
[2018-01-24] MEDS: GABAPENTIN 100 MG CAPSULE PO SCH (08:56)
[2018-01-24] MEDS: TAMSULOSIN 0.4 MG CAPSULE PO SCH ×2 (08:56→20:31)
[2018-01-24] MEDS: DOCUSATE/SENNA 50-8.6 MG TABLET PO SCH (08:56)
[2018-01-24] MEDS: POLYETHYLENE GLYCOL POWDER 17 GM PACK PO SCH (08:56)
[2018-01-24] MEDS ORDERED: ALBUTEROL/IPRATROPIUM 3 ML NEB RESP TX PRN (12:18)
[2018-01-24] MEDS: TRIAMCINOLONE 0.1% CREAM 15 GM TUBE TOP SCH ×2 (15:29→20:32)
[2018-01-24] MEDS: oxyCODONE ER 20 MG TABLET PO SCH (18:10)
[2018-01-24] MEDS: GABAPENTIN 300 MG CAPSULE PO SCH (20:31)
[2018-01-25] MEDS: DOCUSATE/SENNA 50-8.6 MG TABLET PO SCH ×3 (01:38→21:01)
[2018-01-25] MEDS: LINEZOLID INJ 600 MG in PREMIX 1 EACH IV SCH ×2 (03:38→14:21)
[2018-01-25 04:45] LABS: Basophils # 0.1 10*3/uL (0.0-0.2); Basophils % 1.1 % (0.0-0.8); Eosinophils # 0.1 10*3/uL (0.0-0.87); Eosinophils % 2.2 % (0.00-10.9); Hematocrit 32.6 VOL% (42.0-52.0); Hemoglobin 10.2 GM/DL (14.0-18.0); Immature Granulocytes % 2.4 %; Immature Granulocytes Absolute 0.13 #; Lymphocytes # 0.9 10*3/uL (1.4-4.0); Lymphocytes % 16.8 % (21.2-54.2); Mean Corpuscular HGB Conc 31.3 GM/DL (32-36); Mean Corpuscular Hemoglobin 29 PG (27-34); Mean Corpuscular Volume 92.6 FL (87-102); Mean Platelet Volume 10.5 FL (9.6-12.0); Monocytes # 0.4 10*3/uL (0.11-0.8); Monocytes % 6.7 % (1.7-12.7); Neutrophils # 3.9 10*3/uL (1.4-7.4); Neutrophils % 70.8 % (38.7-73.9); Platelet Count 148 T/CUMM (130-400); Red Blood Count 3.52 MC/CUMM (3.8-5.5); Red Cell Distribution Width 13.7 % (9.3-17.3); White Blood Count 5.5 T/CUMM (4-12)
[2018-01-25 05:14] LABS: Albumin 2.2 G/DL (3.4-5.0); Bilirubin,Total 0.5 MG/DL (0.2-1.0); Calcium 8.8 MG/DL (8.5-10.1); Osmolality,Calculated 277.7 MOS/KG (273-304); Potassium 4.1 MMOL/L (3.5-5.1); Total Protein 5.8 G/DL (6.4-8.3)
[2018-01-25] MEDS: LIDOCAINE 5% PATCH TRANSDERM SCH (09:08)
[2018-01-25] MEDS: FILGRASTIM-SNDZ 300 MCG/0.5 ML SYRINGE SUBCUT SCH (09:08)
[2018-01-25] MEDS: BACITRACIN OINT 0.9 GM PACK TOP SCH (09:09)
[2018-01-25] MEDS: APIXABAN 2.5 MG TABLET PO SCH ×2 (09:09→21:01)
[2018-01-25] MEDS: GABAPENTIN 100 MG CAPSULE PO SCH (09:09)
[2018-01-25] MEDS: predniSONE 5 MG TABLET PO SCH (09:09)
[2018-01-25] MEDS: TAMSULOSIN 0.4 MG CAPSULE PO SCH ×2 (09:09→21:01)
[2018-01-25] MEDS: PANTOPRAZOLE 40 MG TABLET PO SCH ×2 (09:09→21:01)
[2018-01-25] MEDS: POLYETHYLENE GLYCOL POWDER 17 GM PACK PO SCH (09:10)
[2018-01-25] MEDS: TRIAMCINOLONE 0.1% CREAM 15 GM TUBE TOP SCH ×3 (09:13→21:02)
[2018-01-25] MEDS: oxyCODONE ER 10 MG TABLET PO SCH (09:35)
[2018-01-25] MEDS: GABAPENTIN 300 MG CAPSULE PO SCH (21:01)
[2018-01-25] MEDS: oxyCODONE ER 20 MG TABLET PO SCH (21:03)
[2018-01-26] MEDS: LINEZOLID INJ 600 MG in PREMIX 1 EACH IV SCH ×2 (04:20→14:48)
[2018-01-26 06:07] LABS: Basophils # 0.1 10*3/uL (0.0-0.2); Basophils % 0.6 % (0.0-0.8); Eosinophils # 0.1 10*3/uL (0.0-0.87); Eosinophils % 1.1 % (0.00-10.9); Hematocrit 32.1 VOL% (42.0-52.0); Immature Granulocytes Absolute 0.49 #; Lymphocytes # 1.2 10*3/uL (1.4-4.0); Lymphocytes % 11.8 % (21.2-54.2); Mean Corpuscular HGB Conc 31.2 GM/DL (32-36); Mean Corpuscular Hemoglobin 29 PG (27-34); Mean Corpuscular Volume 92.2 FL (87-102); Monocytes # 0.6 10*3/uL (0.11-0.8); Monocytes % 5.9 % (1.7-12.7); Neutrophils # 7.4 10*3/uL (1.4-7.4); Neutrophils % 75.6 % (38.7-73.9); Platelet Count 185 T/CUMM (130-400); Red Blood Count 3.48 MC/CUMM (3.8-5.5); Red Cell Distribution Width 13.7 % (9.3-17.3); White Blood Count 9.7 T/CUMM (4-12)
[2018-01-26 06:24] LABS: Band Neutrophils 3 % (0-10); Eosinophils 3 % (0-10); Hypochromasia 2+; Lymphocytes 13 % (20-55); Platelet Estimate Normal; Segmented Neutrophils 77 % (50-85); Total Cells Counted 100
[2018-01-26 06:25] LABS: Albumin 2.1 G/DL (3.4-5.0); Bilirubin,Total 0.8 MG/DL (0.2-1.0); Calcium 8.9 MG/DL (8.5-10.1); Osmolality,Calculated 278.5 MOS/KG (273-304); Potassium 4.2 MMOL/L (3.5-5.1); Total Protein 5.5 G/DL (6.4-8.3)
[2018-01-26] MEDS: predniSONE 5 MG TABLET PO SCH (09:17)
[2018-01-26] MEDS: GABAPENTIN 100 MG CAPSULE PO SCH (09:17)
[2018-01-26] MEDS: DOCUSATE/SENNA 50-8.6 MG TABLET PO SCH ×2 (09:17→20:44)
[2018-01-26] MEDS: PANTOPRAZOLE 40 MG TABLET PO SCH ×2 (09:17→20:44)
[2018-01-26] MEDS: APIXABAN 2.5 MG TABLET PO SCH ×2 (09:17→20:43)
[2018-01-26] MEDS: TAMSULOSIN 0.4 MG CAPSULE PO SCH ×2 (09:17→20:44)
[2018-01-26] MEDS: oxyCODONE ER 10 MG TABLET PO SCH ×2 (09:18→18:10)
[2018-01-26] MEDS: POLYETHYLENE GLYCOL POWDER 17 GM PACK PO SCH (09:18)
[2018-01-26] MEDS: BACITRACIN OINT 0.9 GM PACK TOP SCH (09:18)
[2018-01-26] MEDS: LIDOCAINE 5% PATCH TRANSDERM SCH (09:19)
[2018-01-26] MEDS: TRIAMCINOLONE 0.1% CREAM 15 GM TUBE TOP SCH ×3 (09:23→20:45)
[2018-01-26] MEDS: oxyCODONE ER 20 MG TABLET PO SCH (18:13)
[2018-01-26] MEDS: GABAPENTIN 300 MG CAPSULE PO SCH (20:44)
[2018-01-26] MEDS: CLINDAMYCIN 300 MG CAPSULE PO SCH (22:16)
[2018-01-26] MEDS: diphenhydrAMINE CAP 25 MG CAPSULE PO PRN (22:30)
[2018-01-27 05:23] LABS: Basophils % 0.5 % (0.0-0.8); Eosinophils # 0.1 10*3/uL (0.0-0.87); Eosinophils % 1.4 % (0.00-10.9); Hematocrit 34.3 VOL% (42.0-52.0); Hemoglobin 10.7 GM/DL (14.0-18.0); Immature Granulocytes % 4.8 %; Immature Granulocytes Absolute 0.31 #; Lymphocytes # 1.2 10*3/uL (1.4-4.0); Lymphocytes % 18.9 % (21.2-54.2); Mean Corpuscular HGB Conc 31.2 GM/DL (32-36); Mean Corpuscular Hemoglobin 29 PG (27-34); Mean Corpuscular Volume 92.2 FL (87-102); Mean Platelet Volume 9.8 FL (9.6-12.0); Monocytes # 0.5 10*3/uL (0.11-0.8); Monocytes % 8.2 % (1.7-12.7); Neutrophils # 4.3 10*3/uL (1.4-7.4); Neutrophils % 66.2 % (38.7-73.9); Platelet Count 221 T/CUMM (130-400); Red Blood Count 3.72 MC/CUMM (3.8-5.5); Red Cell Distribution Width 13.9 % (9.3-17.3); White Blood Count 6.5 T/CUMM (4-12)
[2018-01-27 05:49] LABS: Albumin 2.3 G/DL (3.4-5.0); Bilirubin,Total 0.5 MG/DL (0.2-1.0); Calcium 9.3 MG/DL (8.5-10.1); Osmolality,Calculated 279.5 MOS/KG (273-304); Potassium 4.5 MMOL/L (3.5-5.1); Total Protein 5.9 G/DL (6.4-8.3)
[2018-01-27 05:52] LABS: Band Neutrophils 2 % (0-10); Eosinophils 2 % (0-10); Hypochromasia 1+; Lymphocytes 17 % (20-55); Ovalocytes Slight; Platelet Estimate Adequate; Segmented Neutrophils 71 % (50-85); Total Cells Counted 100
[2018-01-27] MEDS: CLINDAMYCIN 300 MG CAPSULE PO SCH ×2 (06:26→14:20)
[2018-01-27] MEDS: GABAPENTIN 100 MG CAPSULE PO SCH (09:39)
[2018-01-27] MEDS: oxyCODONE ER 10 MG TABLET PO SCH (09:39)
[2018-01-27] MEDS: predniSONE 5 MG TABLET PO SCH (09:40)
[2018-01-27] MEDS: APIXABAN 2.5 MG TABLET PO SCH (09:40)
[2018-01-27] MEDS: TAMSULOSIN 0.4 MG CAPSULE PO SCH (09:41)
[2018-01-27] MEDS: PANTOPRAZOLE 40 MG TABLET PO SCH (09:41)
[2018-01-27] MEDS: DOCUSATE/SENNA 50-8.6 MG TABLET PO SCH (09:49)
[2018-01-27] MEDS: LIDOCAINE 5% PATCH TRANSDERM SCH (09:50)
[2018-01-27] MEDS: POLYETHYLENE GLYCOL POWDER 17 GM PACK PO SCH (09:50)
[2018-01-27] MEDS: BACITRACIN OINT 0.9 GM PACK TOP SCH (09:51)
[2018-01-27] MEDS: TRIAMCINOLONE 0.1% CREAM 15 GM TUBE TOP SCH ×2 (09:51→15:35)
[2018-01-27] MEDS: MORPHINE 4 MG/1 ML VIAL IV PRN (17:23)
[2018-01-27 17:36] VITALS: BP 147/58
[2018-01-30 08:55] LABS: ACh Receptor (Muscle) Binding 0 nmol/L (<=0.02); AChR Ganglionic Neuronal Ab, S 0.01 nmol/L (<=0.02); CRMP-5-IgG, S Negative titer (<1:240)
== END 2018-01-27 17:55 | disposition swing bed (61) | DRG 844 ==
LOC: N.ED 12:20 → N.EDINP 15:01 → SUATTDRO 15:01 → N.4E 16:35
PROVIDERS: ADMIT Internal Medicine Geriatric Medicine; ATTEND Internal Medicine

== ENCOUNTER 2018-02-11 07:00 | Observation (INO) ==
[2018-02-11 09:59] LABS: Basophils % 0.5 % (0.0-0.8); Eosinophils % 0.3 % (0.00-10.9); Hematocrit 33.1 VOL% (42.0-52.0); Hemoglobin 10.1 GM/DL (14.0-18.0); Immature Granulocytes % 1.1 %; Immature Granulocytes Absolute 0.07 #; Lymphocytes # 1.2 10*3/uL (1.4-4.0); Mean Corpuscular HGB Conc 30.5 GM/DL (32-36); Mean Corpuscular Hemoglobin 29 PG (27-34); Mean Corpuscular Volume 96.5 FL (87-102); Mean Platelet Volume 9.5 FL (9.6-12.0); Monocytes # 0.9 10*3/uL (0.11-0.8); Monocytes % 13.9 % (1.7-12.7); Neutrophils # 4.1 10*3/uL (1.4-7.4); Neutrophils % 65.2 % (38.7-73.9); Platelet Count 458 T/CUMM (130-400); Red Blood Count 3.43 MC/CUMM (3.8-5.5); Red Cell Distribution Width 16.3 % (9.3-17.3); White Blood Count 6.3 T/CUMM (4-12)
[2018-02-11 10:19] LABS: Albumin 2.6 G/DL (3.4-5.0); Bilirubin,Total 0.5 MG/DL (0.2-1.0); Potassium 4.4 MMOL/L (3.5-5.1); Total Protein 6.5 G/DL (6.4-8.3)
[2018-02-11] MEDS ORDERED: GRANISETRON 1 MG/1 ML VIAL IV SCH (11:30)
[2018-02-11] MEDS ORDERED: DEXAMETHASONE 10 MG/1 ML VIAL IV ONE (11:30)
[2018-02-11] MEDS ORDERED: LOPERAMIDE 2 MG CAPSULE PO PRN ×2 (14:06)
[2018-02-11] MEDS ORDERED: guaiFENesin 200 MG/10 ML UDCUP PO PRN (14:06)
[2018-02-11] MEDS ORDERED: chlorproMAZINE 25 MG TABLET PO PRN (14:06)
[2018-02-11] MEDS ORDERED: ACETAMINOPHEN 325 MG TABLET PO PRN (14:06)
[2018-02-11] MEDS ORDERED: ALUMINUM/MAGNES/SIMETH MAX STR 30 ML UDCUP PO PRN (14:06)
[2018-02-11] MEDS ORDERED: MAGNESIUM HYDROXIDE SUSP 30 ML UDCUP PO PRN (14:06)
[2018-02-11] MEDS ORDERED: GRANISETRON 1 MG/1 ML VIAL IV ONE (15:00)
[2018-02-11] MEDS ORDERED: ATEZOLIZUMAB 1,200 MG in SODIUM CHLORIDE 0.9% 250 ML IV ONE (16:00)
[2018-02-11] MEDS ORDERED: ETOPOSIDE 120 MG in SODIUM CHLORIDE 0.9% 500 ML IV ONE (16:00)
[2018-02-11] MEDS: NYSTATIN 500,000 UNIT/5 ML UDCUP SWISH/SWAL SCH ×2 (16:06→20:46)
[2018-02-11] MEDS: MENTHOL/ZINC OXIDE OINT 71 GM JAR TOP SCH (16:49)
[2018-02-11] MEDS: MIRTAZAPINE 30 MG TABLET PO SCH (20:45)
[2018-02-11] MEDS: DOCUSATE SODIUM 100 MG/10 ML UDCUP PO SCH (20:45)
[2018-02-11] MEDS: GABAPENTIN 300 MG CAPSULE PO SCH (20:45)
[2018-02-11] MEDS: TAMSULOSIN 0.4 MG CAPSULE PO SCH (20:45)
[2018-02-11] MEDS: APIXABAN 2.5 MG TABLET PO SCH (20:46)
[2018-02-11] MEDS: oxyCODONE ER 20 MG TABLET PO SCH (20:46)
[2018-02-11] MEDS: PANTOPRAZOLE 40 MG TABLET PO SCH (20:46)
[2018-02-11] MEDS: SENNA 8.6 MG TABLET PO SCH (20:48)
[2018-02-12] MEDS: predniSONE 5 MG TABLET PO SCH (09:52)
[2018-02-12] MEDS: TAMSULOSIN 0.4 MG CAPSULE PO SCH ×2 (09:53→20:06)
[2018-02-12] MEDS: ATORVASTATIN 20 MG TABLET PO SCH (09:53)
[2018-02-12] MEDS: PANTOPRAZOLE 40 MG TABLET PO SCH ×2 (09:54→20:06)
[2018-02-12] MEDS: oxyCODONE ER 10 MG TABLET PO SCH (09:55)
[2018-02-12] MEDS: SENNA 8.6 MG TABLET PO SCH ×2 (10:01→20:06)
[2018-02-12] MEDS: DOCUSATE SODIUM 100 MG/10 ML UDCUP PO SCH ×2 (10:01→20:05)
[2018-02-12] MEDS: NYSTATIN 500,000 UNIT/5 ML UDCUP SWISH/SWAL SCH ×4 (10:02→20:07)
[2018-02-12] MEDS: APIXABAN 2.5 MG TABLET PO SCH ×2 (10:02→20:06)
[2018-02-12] MEDS: LIDOCAINE 5% PATCH TRANSDERM SCH (10:03)
[2018-02-12] MEDS: MENTHOL/ZINC OXIDE OINT 71 GM JAR TOP SCH (14:10)
[2018-02-12] MEDS: CHLORHEXIDINE 4% SOLN 118 ML BOTTLE TOP SCH ×3 (14:30→20:10)
[2018-02-12] MEDS: GRANISETRON 1 MG/1 ML VIAL IV SCH (15:40)
[2018-02-12] MEDS: DEXAMETHASONE INJ 20 MG in SODIUM CHLORIDE 0.9% 50 ML IV SCH ×2 (15:41→17:06)
[2018-02-12] MEDS ORDERED: CARBOPLATIN IV ONE (16:00)
[2018-02-12] MEDS ORDERED: ETOPOSIDE 120 MG in SODIUM CHLORIDE 0.9% 500 ML IV SCH (16:00)
[2018-02-12] MEDS ORDERED: SODIUM CHLORIDE 0.9% IV ONE (16:00)
[2018-02-12] MEDS: GABAPENTIN 300 MG CAPSULE PO SCH (20:06)
[2018-02-12] MEDS: oxyCODONE ER 20 MG TABLET PO SCH (20:06)
[2018-02-12] MEDS: MIRTAZAPINE 30 MG TABLET PO SCH (20:06)
[2018-02-13] MEDS: APIXABAN 2.5 MG TABLET PO SCH ×2 (11:04→21:28)
[2018-02-13] MEDS: PANTOPRAZOLE 40 MG TABLET PO SCH ×2 (11:06→21:35)
[2018-02-13] MEDS: predniSONE 5 MG TABLET PO SCH (11:06)
[2018-02-13] MEDS: SENNA 8.6 MG TABLET PO SCH ×2 (11:07→21:28)
[2018-02-13] MEDS: ATORVASTATIN 20 MG TABLET PO SCH (11:07)
[2018-02-13] MEDS: oxyCODONE ER 10 MG TABLET PO SCH (11:08)
[2018-02-13] MEDS: TAMSULOSIN 0.4 MG CAPSULE PO SCH ×2 (11:09→21:28)
[2018-02-13] MEDS: DOCUSATE SODIUM 100 MG/10 ML UDCUP PO SCH ×2 (11:09→21:36)
[2018-02-13] MEDS: NYSTATIN 500,000 UNIT/5 ML UDCUP SWISH/SWAL SCH ×4 (11:10→21:36)
[2018-02-13] MEDS: LIDOCAINE 5% PATCH TRANSDERM SCH (11:12)
[2018-02-13] MEDS ORDERED: ETOPOSIDE 120 MG in SODIUM CHLORIDE 0.9% 500 ML IV SCH (13:00)
[2018-02-13] MEDS ORDERED: DEXAMETHASONE INJ 20 MG in SODIUM CHLORIDE 0.9% 50 ML IV SCH (13:00)
[2018-02-13] MEDS: GRANISETRON 1 MG/1 ML VIAL IV SCH (13:11)
[2018-02-13] MEDS: CHLORHEXIDINE 4% SOLN 118 ML BOTTLE TOP SCH ×2 (14:30→21:36)
[2018-02-13] MEDS: oxyCODONE ER 20 MG TABLET PO SCH (18:25)
[2018-02-13] MEDS: MENTHOL/ZINC OXIDE OINT 71 GM JAR TOP SCH (18:27)
[2018-02-13] MEDS: GABAPENTIN 300 MG CAPSULE PO SCH (21:28)
[2018-02-13] MEDS: MIRTAZAPINE 30 MG TABLET PO SCH (21:28)
[2018-02-14 04:51] VITALS: BP 129/84
== END 2018-02-14 05:09 | disposition swing bed (61) ==
LOC: N.4E 09:09 → INTOOBSV 09:09
PROVIDERS: ADMIT Specialist; ATTEND Internal Medicine

== ENCOUNTER 2018-03-09 07:00 | Observation (INO) ==
[2018-03-09 08:29] LABS: Basophils % 0.6 % (0.0-0.8); Eosinophils # 0.1 10*3/uL (0.0-0.87); Eosinophils % 1.1 % (0.00-10.9); Hematocrit 34.3 VOL% (42.0-52.0); Hemoglobin 10.6 GM/DL (14.0-18.0); Immature Granulocytes % 1.1 %; Immature Granulocytes Absolute 0.08 #; Lymphocytes # 1.2 10*3/uL (1.4-4.0); Lymphocytes % 17.8 % (21.2-54.2); Mean Corpuscular HGB Conc 30.9 GM/DL (32-36); Mean Corpuscular Hemoglobin 30 PG (27-34); Mean Corpuscular Volume 95.5 FL (87-102); Mean Platelet Volume 9.3 FL (9.6-12.0); Monocytes # 0.8 10*3/uL (0.11-0.8); Monocytes % 11.2 % (1.7-12.7); Neutrophils # 4.7 10*3/uL (1.4-7.4); Neutrophils % 68.2 % (38.7-73.9); Platelet Count 260 T/CUMM (130-400); Red Blood Count 3.59 MC/CUMM (3.8-5.5); Red Cell Distribution Width 16.6 % (9.3-17.3)
[2018-03-09 08:38] LABS: PT Patient Result 10.5 SECS
[2018-03-09 08:52] LABS: Uric Acid 5.5 MG/DL (3.5-7.2)
[2018-03-09 08:54] LABS: Alanine Aminotransferase 33 U/L (16-61); Albumin 2.9 G/DL (3.4-5.0); Alkaline Phosphatase 149 U/L (45-117); Aspartate Amino Transferase 27 U/L (0-37); Bilirubin,Total < 0.39 MG/DL (0.2-1.0); Blood Urea Nitrogen 43 MG/DL (7-18); Calcium 9.4 MG/DL (8.5-10.1); Glucose 95 MG/DL (74-106); Osmolality,Calculated 285.7 MOS/KG (273-304); Potassium 4.8 MMOL/L (3.5-5.1); Sodium 138 MMOL/L (136-145); Total Protein 7.4 G/DL (6.4-8.3)
[2018-03-09] MEDS ORDERED: SODIUM CHLORIDE 0.9% 1,000 ML IV SCH (09:00)
[2018-03-09] MEDS: DEXT 5% NACL 0.45% KCL 20 MEQ 20 MEQ/1,000 ML BAG IV SCH ×2 (11:34→21:18)
[2018-03-09] MEDS ORDERED: ATEZOLIZUMAB 1,200 MG in SODIUM CHLORIDE 0.9% 250 ML IV ONE (12:00)
[2018-03-09] MEDS: GRANISETRON 1 MG/1 ML VIAL IV SCH (12:43)
[2018-03-09] MEDS: DEXAMETHASONE 10 MG/1 ML VIAL IV SCH (12:45)
[2018-03-09] MEDS ORDERED: MYLANTA/LIDO VISC 2:1 300 ML BOTTLE SWISH/SWAL PRN (15:24)
[2018-03-09] MEDS ORDERED: guaiFENesin 200 MG/10 ML UDCUP PO PRN (15:24)
[2018-03-09] MEDS ORDERED: MYLANTA/LIDO VISC 2:1 300 ML BOTTLE SWISH/SPIT PRN (15:24)
[2018-03-09] MEDS ORDERED: BENZTROPINE 2 MG/2 ML AMP IV PRN (15:24)
[2018-03-09] MEDS ORDERED: chlorproMAZINE INJ 25 MG in SODIUM CHLORIDE 0.9% 100 ML IV PRN (15:24)
[2018-03-09] MEDS ORDERED: traMADol 50 MG TABLET PO PRN (15:24)
[2018-03-09] MEDS ORDERED: chlorproMAZINE INJ 50 MG in SODIUM CHLORIDE 0.9% 100 ML IV PRN (15:24)
[2018-03-09] MEDS ORDERED: ALPRAZolam 0.25 MG TABLET PO PRN (15:24)
[2018-03-09] MEDS ORDERED: LOPERAMIDE 2 MG CAPSULE PO PRN ×2 (15:24)
[2018-03-09] MEDS ORDERED: LACTULOSE 20 GM/30 ML UDCUP PO PRN (15:24)
[2018-03-09] MEDS ORDERED: ALUMINUM/MAGNES/SIMETH MAX STR 30 ML UDCUP PO PRN (15:24)
[2018-03-09] MEDS ORDERED: PROMETHAZINE INJ 25 MG in SODIUM CHLORIDE 0.9% 50 ML IV PRN (15:24)
[2018-03-09] MEDS ORDERED: chlorproMAZINE 25 MG TABLET PO PRN (15:24)
[2018-03-09] MEDS ORDERED: ACETAMINOPHEN 325 MG TABLET PO PRN (15:24)
[2018-03-09] MEDS ORDERED: ONDANSETRON 4 MG/2 ML VIAL IV PRN (15:24)
[2018-03-09] MEDS ORDERED: TEMAZEPAM 7.5 MG CAPSULE PO PRN (15:24)
[2018-03-09] MEDS ORDERED: MAGNESIUM HYDROXIDE SUSP 30 ML UDCUP PO PRN (15:24)
[2018-03-09] MEDS ORDERED: diphenhydrAMINE CAP 25 MG CAPSULE PO PRN (15:24)
[2018-03-09] MEDS ORDERED: SENNA 8.6 MG TABLET PO PRN (20:53)
[2018-03-09] MEDS: GABAPENTIN 300 MG CAPSULE PO SCH (21:13)
[2018-03-09] MEDS: PANTOPRAZOLE 40 MG TABLET PO SCH (21:14)
[2018-03-09] MEDS: MIRTAZAPINE 30 MG TABLET PO SCH (21:14)
[2018-03-09] MEDS: APIXABAN 2.5 MG TABLET PO SCH (21:14)
[2018-03-09] MEDS: oxyCODONE ER 20 MG TABLET PO SCH (21:14)
[2018-03-09] MEDS: TAMSULOSIN 0.4 MG CAPSULE PO SCH (21:14)
[2018-03-09] MEDS: DOCUSATE SODIUM 100 MG/10 ML UDCUP PO SCH (21:14)
[2018-03-09 21:15] LABS: Apearance,Urine CLOUDY (Clear); Bilirubin,Urine Negative (Negative); Blood, Urine Negative (Negative); Glucose,Urine (UA) Negative (Negative); Ketones,Urine Negative (Negative); Nitrite,Urine Negative (Negative); Protein,Urine 100 MG/DL; RBC,Urine 4 /HPF (0-4); Urine Color Yellow (Yellow); Urine Specific Gravity 1.014 (1.001-1.035); Urine Urobilinogen < 2.0 EU/DL (0.2-1.0); WBC,Urine 666 /HPF (0-6)
[2018-03-10 05:49] LABS: Basophils % 0.1 % (0.0-0.8); Immature Granulocytes % 0.7 %; Immature Granulocytes Absolute 0.05 #; Lymphocytes % 15.2 % (21.2-54.2); Mean Corpuscular HGB Conc 31.3 GM/DL (32-36); Mean Corpuscular Hemoglobin 29 PG (27-34); Mean Corpuscular Volume 94.1 FL (87-102); Mean Platelet Volume 9.9 FL (9.6-12.0); Monocytes # 0.6 10*3/uL (0.11-0.8); Monocytes % 8.2 % (1.7-12.7); Neutrophils # 5.1 10*3/uL (1.4-7.4); Neutrophils % 75.8 % (38.7-73.9); Platelet Count 227 T/CUMM (130-400); Red Cell Distribution Width 16.4 % (9.3-17.3); White Blood Count 6.7 T/CUMM (4-12)
[2018-03-10 06:28] LABS: Alanine Aminotransferase 31 U/L (16-61); Albumin 2.7 G/DL (3.4-5.0); Alkaline Phosphatase 137 U/L (45-117); Aspartate Amino Transferase 21 U/L (0-37); Bilirubin,Total < 0.39 MG/DL (0.2-1.0); Blood Urea Nitrogen 40 MG/DL (7-18); Calcium 9.4 MG/DL (8.5-10.1); Glucose 130 MG/DL (74-106); Osmolality,Calculated 286.7 MOS/KG (273-304); Potassium 4.3 MMOL/L (3.5-5.1); Sodium 138 MMOL/L (136-145)
[2018-03-10] MEDS: DOCUSATE SODIUM 100 MG/10 ML UDCUP PO SCH ×2 (08:46→21:35)
[2018-03-10] MEDS: TAMSULOSIN 0.4 MG CAPSULE PO SCH ×2 (08:46→21:43)
[2018-03-10] MEDS: DEXT 5% NACL 0.45% KCL 20 MEQ 20 MEQ/1,000 ML BAG IV SCH (08:46)
[2018-03-10] MEDS: PANTOPRAZOLE 40 MG TABLET PO SCH ×2 (08:46→21:43)
[2018-03-10] MEDS: APIXABAN 2.5 MG TABLET PO SCH ×2 (08:46→21:35)
[2018-03-10] MEDS ORDERED: SODIUM CHLORIDE 0.9% IV ONE (10:00)
[2018-03-10] MEDS ORDERED: CARBOPLATIN IV ONE (10:00)
[2018-03-10] MEDS: GRANISETRON 1 MG/1 ML VIAL IV SCH (10:11)
[2018-03-10] MEDS: DEXAMETHASONE 10 MG/1 ML VIAL IV SCH (10:14)
[2018-03-10] MEDS: ETOPOSIDE 100 MG in SODIUM CHLORIDE 0.9% 500 ML IV SCH (11:03)
[2018-03-10] MEDS: GABAPENTIN 300 MG CAPSULE PO SCH (21:43)
[2018-03-10] MEDS: oxyCODONE ER 20 MG TABLET PO SCH (21:44)
[2018-03-10] MEDS: MIRTAZAPINE 30 MG TABLET PO SCH (21:44)
[2018-03-11] MEDS: DEXT 5% NACL 0.45% KCL 20 MEQ 20 MEQ/1,000 ML BAG IV SCH ×3 (01:08→18:09)
[2018-03-11 04:52] LABS: Basophils % 0.1 % (0.0-0.8); Hematocrit 28.3 VOL% (42.0-52.0); Hemoglobin 8.9 GM/DL (14.0-18.0); Immature Granulocytes % 0.8 %; Immature Granulocytes Absolute 0.08 #; Lymphocytes # 1.3 10*3/uL (1.4-4.0); Lymphocytes % 11.8 % (21.2-54.2); Mean Corpuscular HGB Conc 31.4 GM/DL (32-36); Mean Corpuscular Hemoglobin 30 PG (27-34); Mean Corpuscular Volume 95.3 FL (87-102); Mean Platelet Volume 9.7 FL (9.6-12.0); Monocytes # 0.9 10*3/uL (0.11-0.8); Monocytes % 8.7 % (1.7-12.7); Neutrophils # 8.4 10*3/uL (1.4-7.4); Neutrophils % 78.6 % (38.7-73.9); Platelet Count 233 T/CUMM (130-400); Red Blood Count 2.97 MC/CUMM (3.8-5.5); Red Cell Distribution Width 16.6 % (9.3-17.3); White Blood Count 10.6 T/CUMM (4-12)
[2018-03-11 05:11] LABS: Albumin 2.4 G/DL (3.4-5.0); Bilirubin,Total 0.7 MG/DL (0.2-1.0); Calcium 8.7 MG/DL (8.5-10.1); Osmolality,Calculated 289.4 MOS/KG (273-304); Potassium 4.6 MMOL/L (3.5-5.1); Total Protein 6.2 G/DL (6.4-8.3)
[2018-03-11] MEDS ORDERED: PEGFILGRASTIM 6 MG/0.6 ML KIT SUBCUT ONE (07:40)
[2018-03-11] MEDS ORDERED: DEXAMETHASONE 10 MG/1 ML VIAL ONE (10:19)
[2018-03-11] MEDS ORDERED: GRANISETRON 1 MG/1 ML VIAL IV ONE (10:19)
[2018-03-11] MEDS: TAMSULOSIN 0.4 MG CAPSULE PO SCH ×2 (11:44→20:46)
[2018-03-11] MEDS: APIXABAN 2.5 MG TABLET PO SCH ×2 (11:44→20:46)
[2018-03-11] MEDS: PANTOPRAZOLE 40 MG TABLET PO SCH ×2 (11:44→20:47)
[2018-03-11] MEDS: DOCUSATE SODIUM 100 MG/10 ML UDCUP PO SCH ×2 (11:45→21:21)
[2018-03-11] MEDS: DEXAMETHASONE 10 MG/1 ML VIAL IV SCH (11:45)
[2018-03-11] MEDS: GRANISETRON 1 MG/1 ML VIAL IV SCH (11:47)
[2018-03-11] MEDS: ETOPOSIDE 100 MG in SODIUM CHLORIDE 0.9% 500 ML IV SCH (11:50)
[2018-03-11] MEDS: oxyCODONE ER 20 MG TABLET PO SCH (20:46)
[2018-03-11] MEDS: GABAPENTIN 300 MG CAPSULE PO SCH (20:46)
[2018-03-11] MEDS: MIRTAZAPINE 30 MG TABLET PO SCH (20:47)
[2018-03-12 03:38] LABS: Basophils % 0.1 % (0.0-0.8); Hematocrit 27.8 VOL% (42.0-52.0); Hemoglobin 8.6 GM/DL (14.0-18.0); Immature Granulocytes % 0.7 %; Immature Granulocytes Absolute 0.05 #; Lymphocytes # 0.9 10*3/uL (1.4-4.0); Lymphocytes % 12.2 % (21.2-54.2); Mean Corpuscular HGB Conc 30.9 GM/DL (32-36); Mean Corpuscular Hemoglobin 30 PG (27-34); Mean Corpuscular Volume 95.9 FL (87-102); Mean Platelet Volume 9.7 FL (9.6-12.0); Monocytes # 0.5 10*3/uL (0.11-0.8); Monocytes % 6.2 % (1.7-12.7); Neutrophils # 6.2 10*3/uL (1.4-7.4); Neutrophils % 80.8 % (38.7-73.9); Platelet Count 215 T/CUMM (130-400); Red Cell Distribution Width 16.9 % (9.3-17.3); White Blood Count 7.6 T/CUMM (4-12)
[2018-03-12 03:55] LABS: Alanine Aminotransferase 26 U/L (16-61); Albumin 2.4 G/DL (3.4-5.0); Alkaline Phosphatase 105 U/L (45-117); Aspartate Amino Transferase 14 U/L (0-37); Bilirubin,Total < 0.39 MG/DL (0.2-1.0); Blood Urea Nitrogen 41 MG/DL (7-18); Calcium 8.6 MG/DL (8.5-10.1); Glucose 145 MG/DL (74-106); Osmolality,Calculated 285.8 MOS/KG (273-304); Potassium 4.7 MMOL/L (3.5-5.1); Sodium 137 MMOL/L (136-145); Total Protein 6.1 G/DL (6.4-8.3)
[2018-03-12] MEDS: DEXT 5% NACL 0.45% KCL 20 MEQ 20 MEQ/1,000 ML BAG IV SCH (04:30)
[2018-03-12] MEDS: PANTOPRAZOLE 40 MG TABLET PO SCH ×2 (09:08→20:36)
[2018-03-12] MEDS: APIXABAN 2.5 MG TABLET PO SCH ×2 (09:09→20:36)
[2018-03-12] MEDS: ETOPOSIDE 100 MG in SODIUM CHLORIDE 0.9% 500 ML IV SCH (09:09)
[2018-03-12] MEDS: DOCUSATE SODIUM 100 MG/10 ML UDCUP PO SCH ×2 (09:09→20:40)
[2018-03-12] MEDS: TAMSULOSIN 0.4 MG CAPSULE PO SCH ×2 (09:09→20:36)
[2018-03-12] MEDS: MIRTAZAPINE 30 MG TABLET PO SCH (20:36)
[2018-03-12] MEDS: GABAPENTIN 300 MG CAPSULE PO SCH (20:36)
[2018-03-12] MEDS: oxyCODONE ER 20 MG TABLET PO SCH (20:36)
[2018-03-13] MEDS: DEXT 5% NACL 0.45% KCL 20 MEQ 20 MEQ/1,000 ML BAG IV SCH ×2 (01:18→02:13)
[2018-03-13 05:47] LABS: Basophils % 0.3 % (0.0-0.8); Eosinophils # 0.1 10*3/uL (0.0-0.87); Eosinophils % 0.8 % (0.00-10.9); Hematocrit 27.6 VOL% (42.0-52.0); Hemoglobin 8.4 GM/DL (14.0-18.0); Immature Granulocytes % 0.3 %; Immature Granulocytes Absolute 0.02 #; Lymphocytes # 1.4 10*3/uL (1.4-4.0); Lymphocytes % 21.1 % (21.2-54.2); Mean Corpuscular HGB Conc 30.4 GM/DL (32-36); Mean Corpuscular Hemoglobin 30 PG (27-34); Mean Corpuscular Volume 97.2 FL (87-102); Mean Platelet Volume 10.3 FL (9.6-12.0); Monocytes # 0.2 10*3/uL (0.11-0.8); Monocytes % 3.6 % (1.7-12.7); Neutrophils # 4.7 10*3/uL (1.4-7.4); Neutrophils % 73.9 % (38.7-73.9); Platelet Count 197 T/CUMM (130-400); Red Blood Count 2.84 MC/CUMM (3.8-5.5); Red Cell Distribution Width 17.1 % (9.3-17.3); White Blood Count 6.4 T/CUMM (4-12)
[2018-03-13 07:28] LABS: Albumin 2.3 G/DL (3.4-5.0); Bilirubin,Total 0.4 MG/DL (0.2-1.0); Calcium 8.4 MG/DL (8.5-10.1); Osmolality,Calculated 283.5 MOS/KG (273-304); Potassium 5.1 MMOL/L (3.5-5.1); Total Protein 5.4 G/DL (6.4-8.3)
[2018-03-13] MEDS: TAMSULOSIN 0.4 MG CAPSULE PO SCH (08:32)
[2018-03-13] MEDS: APIXABAN 2.5 MG TABLET PO SCH (08:32)
[2018-03-13] MEDS: PANTOPRAZOLE 40 MG TABLET PO SCH (08:32)
[2018-03-13] MEDS: DOCUSATE SODIUM 100 MG/10 ML UDCUP PO SCH (08:32)
[2018-03-13 12:04] VITALS: BP 135/63
== END 2018-03-13 12:19 ==
LOC: N.4E 07:00 → INTOOBSV 07:00
PROVIDERS: ADMIT Specialist; ATTEND Specialist

== ENCOUNTER 2018-05-04 07:00 | Observation (INO) ==
[2018-05-05 08:03] LABS: Basophils % 0.4 % (0.0-0.8); Eosinophils # 0.2 10*3/uL (0.0-0.87); Eosinophils % 3.1 % (0.00-10.9); Hematocrit 31.8 VOL% (42.0-52.0); Hemoglobin 9.9 GM/DL (14.0-18.0); Immature Granulocytes % 0.6 %; Immature Granulocytes Absolute 0.03 #; Lymphocytes # 0.8 10*3/uL (1.4-4.0); Lymphocytes % 16.4 % (21.2-54.2); Mean Corpuscular HGB Conc 31.1 GM/DL (32-36); Mean Corpuscular Hemoglobin 32 PG (27-34); Mean Corpuscular Volume 102.3 FL (87-102); Mean Platelet Volume 9.4 FL (9.6-12.0); Monocytes # 0.6 10*3/uL (0.11-0.8); Monocytes % 11.4 % (1.7-12.7); Neutrophils # 3.5 10*3/uL (1.4-7.4); Neutrophils % 68.1 % (38.7-73.9); Platelet Count 206 T/CUMM (130-400); Red Blood Count 3.11 MC/CUMM (3.8-5.5); Red Cell Distribution Width 15.3 % (9.3-17.3); White Blood Count 5.1 T/CUMM (4-12)
[2018-05-05 08:23] LABS: Albumin 2.9 G/DL (3.4-5.0); Bilirubin,Total 0.4 MG/DL (0.2-1.0); Calcium 9.1 MG/DL (8.5-10.1); Potassium 3.9 MMOL/L (3.5-5.1); Total Protein 6.6 G/DL (6.4-8.3)
[2018-05-05] MEDS ORDERED: guaiFENesin 200 MG/10 ML UDCUP PO PRN (08:47)
[2018-05-05] MEDS ORDERED: LOPERAMIDE 2 MG CAPSULE PO PRN ×2 (08:47)
[2018-05-05] MEDS ORDERED: ALUMINUM/MAGNES/SIMETH MAX STR 30 ML UDCUP PO PRN (08:47)
[2018-05-05] MEDS ORDERED: chlorproMAZINE 25 MG TABLET PO PRN (08:47)
[2018-05-05] MEDS ORDERED: ACETAMINOPHEN 325 MG TABLET PO PRN (08:47)
[2018-05-05] MEDS ORDERED: SENNA 8.6 MG TABLET PO PRN (08:47)
[2018-05-05] MEDS ORDERED: MAGNESIUM HYDROXIDE SUSP 30 ML UDCUP PO PRN ×2 (08:47→13:24)
[2018-05-05] MEDS: DOCUSATE SODIUM 100 MG/10 ML UDCUP PO SCH ×2 (09:21→21:41)
[2018-05-05] MEDS: APIXABAN 2.5 MG TABLET PO SCH ×2 (09:22→21:47)
[2018-05-05] MEDS: TAMSULOSIN 0.4 MG CAPSULE PO SCH ×2 (09:22→21:42)
[2018-05-05] MEDS: LIDOCAINE 5% PATCH TRANSDERM SCH (09:22)
[2018-05-05] MEDS: predniSONE 5 MG TABLET PO SCH (09:23)
[2018-05-05] MEDS: oxyCODONE ER 10 MG TABLET PO SCH (09:25)
[2018-05-05] MEDS: PANTOPRAZOLE 40 MG TABLET PO SCH ×2 (09:25→21:42)
[2018-05-05] MEDS: MENTHOL/ZINC OXIDE OINT 71 GM JAR TOP SCH (09:26)
[2018-05-05] MEDS ORDERED: ATEZOLIZUMAB 1,200 MG in SODIUM CHLORIDE 0.9% 250 ML IV ONE (11:00)
[2018-05-05] MEDS: DEXT 5% NACL 0.45% KCL 20 MEQ 20 MEQ/1,000 ML BAG IV SCH ×2 (12:11→22:45)
[2018-05-05] MEDS: DEXAMETHASONE 10 MG/1 ML VIAL IV SCH (12:13)
[2018-05-05] MEDS: GRANISETRON 1 MG/1 ML VIAL IV SCH (12:14)
[2018-05-05] MEDS ORDERED: chlorproMAZINE INJ 25 MG in SODIUM CHLORIDE 0.9% 100 ML IV PRN (13:24)
[2018-05-05] MEDS ORDERED: ALPRAZolam 0.25 MG TABLET PO PRN (13:24)
[2018-05-05] MEDS ORDERED: PROMETHAZINE INJ 25 MG in SODIUM CHLORIDE 0.9% 50 ML IV PRN (13:24)
[2018-05-05] MEDS ORDERED: diphenhydrAMINE CAP 25 MG CAPSULE PO PRN (13:24)
[2018-05-05] MEDS ORDERED: MYLANTA/LIDO VISC 2:1 300 ML BOTTLE SWISH/SWAL PRN (13:24)
[2018-05-05] MEDS ORDERED: LACTULOSE 20 GM/30 ML UDCUP PO PRN (13:24)
[2018-05-05] MEDS ORDERED: BENZTROPINE 2 MG/2 ML AMP IV PRN (13:24)
[2018-05-05] MEDS ORDERED: chlorproMAZINE INJ 50 MG in SODIUM CHLORIDE 0.9% 100 ML IV PRN (13:24)
[2018-05-05] MEDS ORDERED: traMADol 50 MG TABLET PO PRN (13:24)
[2018-05-05] MEDS ORDERED: ONDANSETRON 4 MG/2 ML VIAL IV PRN (13:24)
[2018-05-05] MEDS: ETOPOSIDE 150 MG in SODIUM CHLORIDE 0.9% 500 ML IV SCH (18:47)
[2018-05-05] MEDS: TEMAZEPAM 7.5 MG CAPSULE PO PRN (21:41)
[2018-05-05] MEDS: MIRTAZAPINE 30 MG TABLET PO SCH (21:42)
[2018-05-05] MEDS: GABAPENTIN 300 MG CAPSULE PO SCH (21:42)
[2018-05-05] MEDS: oxyCODONE ER 20 MG TABLET PO SCH (21:42)
[2018-05-06] MEDS: DEXT 5% NACL 0.45% KCL 20 MEQ 20 MEQ/1,000 ML BAG IV SCH ×4 (01:15→20:19)
[2018-05-06 06:22] LABS: Hematocrit 31.3 VOL% (42.0-52.0); Hemoglobin 9.8 GM/DL (14.0-18.0); Immature Granulocytes % 0.2 %; Immature Granulocytes Absolute 0.01 #; Lymphocytes # 0.8 10*3/uL (1.4-4.0); Lymphocytes % 15.9 % (21.2-54.2); Mean Corpuscular HGB Conc 31.3 GM/DL (32-36); Mean Corpuscular Hemoglobin 32 PG (27-34); Mean Corpuscular Volume 101.3 FL (87-102); Mean Platelet Volume 9.4 FL (9.6-12.0); Monocytes # 0.7 10*3/uL (0.11-0.8); Monocytes % 12.7 % (1.7-12.7); Neutrophils # 3.6 10*3/uL (1.4-7.4); Neutrophils % 71.2 % (38.7-73.9); Platelet Count 189 T/CUMM (130-400); Red Blood Count 3.09 MC/CUMM (3.8-5.5); Red Cell Distribution Width 14.6 % (9.3-17.3); White Blood Count 5.1 T/CUMM (4-12)
[2018-05-06 06:57] LABS: Albumin 2.9 G/DL (3.4-5.0); Bilirubin,Total 0.5 MG/DL (0.2-1.0); Calcium 8.8 MG/DL (8.5-10.1); Osmolality,Calculated 287.3 MOS/KG (273-304); Potassium 4.7 MMOL/L (3.5-5.1); Total Protein 6.6 G/DL (6.4-8.3)
[2018-05-06] MEDS: DOCUSATE SODIUM 100 MG/10 ML UDCUP PO SCH ×2 (08:35→20:22)
[2018-05-06] MEDS: APIXABAN 2.5 MG TABLET PO SCH ×2 (08:36→20:21)
[2018-05-06] MEDS: TAMSULOSIN 0.4 MG CAPSULE PO SCH ×2 (08:36→20:21)
[2018-05-06] MEDS: PANTOPRAZOLE 40 MG TABLET PO SCH ×2 (08:36→20:21)
[2018-05-06] MEDS: predniSONE 5 MG TABLET PO SCH (08:36)
[2018-05-06] MEDS: oxyCODONE ER 10 MG TABLET PO SCH (08:39)
[2018-05-06] MEDS ORDERED: CARBOPLATIN IV ONE (10:00)
[2018-05-06] MEDS ORDERED: SODIUM CHLORIDE 0.9% IV ONE (10:00)
[2018-05-06] MEDS: GRANISETRON 1 MG/1 ML VIAL IV SCH (10:17)
[2018-05-06] MEDS: DEXAMETHASONE 10 MG/1 ML VIAL IV SCH (10:19)
[2018-05-06] MEDS: MENTHOL/ZINC OXIDE OINT 71 GM JAR TOP SCH (10:22)
[2018-05-06] MEDS: LIDOCAINE 5% PATCH TRANSDERM SCH (10:23)
[2018-05-06] MEDS ORDERED: ceFAZolin 1,000 MG in SYRINGE 1 EACH IV ONE (10:57)
[2018-05-06] MEDS: ETOPOSIDE 150 MG in SODIUM CHLORIDE 0.9% 500 ML IV SCH (11:12)
[2018-05-06] MEDS: oxyCODONE ER 20 MG TABLET PO SCH (18:54)
[2018-05-06] MEDS: MIRTAZAPINE 30 MG TABLET PO SCH (20:21)
[2018-05-06] MEDS: GABAPENTIN 300 MG CAPSULE PO SCH (20:21)
[2018-05-06] MEDS: TEMAZEPAM 7.5 MG CAPSULE PO PRN (21:44)
[2018-05-07] MEDS: DEXT 5% NACL 0.45% KCL 20 MEQ 20 MEQ/1,000 ML BAG IV SCH ×2 (04:03→14:43)
[2018-05-07 07:53] LABS: Basophils % 0.1 % (0.0-0.8); Eosinophils % 0.1 % (0.00-10.9); Hematocrit 28.8 VOL% (42.0-52.0); Immature Granulocytes % 0.4 %; Immature Granulocytes Absolute 0.05 #; Lymphocytes # 1.1 10*3/uL (1.4-4.0); Lymphocytes % 9.6 % (21.2-54.2); Mean Corpuscular HGB Conc 31.3 GM/DL (32-36); Mean Corpuscular Hemoglobin 32 PG (27-34); Mean Corpuscular Volume 101.1 FL (87-102); Mean Platelet Volume 9.3 FL (9.6-12.0); Monocytes # 0.5 10*3/uL (0.11-0.8); Monocytes % 4.4 % (1.7-12.7); Neutrophils # 9.6 10*3/uL (1.4-7.4); Neutrophils % 85.4 % (38.7-73.9); Platelet Count 202 T/CUMM (130-400); Red Blood Count 2.85 MC/CUMM (3.8-5.5); Red Cell Distribution Width 15.1 % (9.3-17.3); White Blood Count 11.2 T/CUMM (4-12)
[2018-05-07 08:16] LABS: Alanine Aminotransferase 43 U/L (16-61); Albumin 2.5 G/DL (3.4-5.0); Alkaline Phosphatase 95 U/L (45-117); Aspartate Amino Transferase 26 U/L (0-37); Bilirubin,Total < 0.39 MG/DL (0.2-1.0); Blood Urea Nitrogen 29 MG/DL (7-18); Calcium 8.9 MG/DL (8.5-10.1); Glucose 117 MG/DL (74-106); Osmolality,Calculated 287.3 MOS/KG (273-304); Potassium 4.1 MMOL/L (3.5-5.1); Sodium 141 MMOL/L (136-145)
[2018-05-07] MEDS ORDERED: FOSAPREPITANT 150 MG in SODIUM CHLORIDE 0.9% 100 ML IV ONE (09:00)
[2018-05-07] MEDS: TAMSULOSIN 0.4 MG CAPSULE PO SCH (09:17)
[2018-05-07] MEDS: PANTOPRAZOLE 40 MG TABLET PO SCH (09:17)
[2018-05-07] MEDS: DOCUSATE SODIUM 100 MG/10 ML UDCUP PO SCH (09:18)
[2018-05-07] MEDS: APIXABAN 2.5 MG TABLET PO SCH (09:18)
[2018-05-07] MEDS: oxyCODONE ER 10 MG TABLET PO SCH (09:18)
[2018-05-07] MEDS: predniSONE 5 MG TABLET PO SCH (09:18)
[2018-05-07] MEDS: MENTHOL/ZINC OXIDE OINT 71 GM JAR TOP SCH (09:21)
[2018-05-07] MEDS: LIDOCAINE 5% PATCH TRANSDERM SCH (09:21)
[2018-05-07] MEDS: GRANISETRON 1 MG/1 ML VIAL IV SCH (10:29)
[2018-05-07] MEDS: DEXAMETHASONE 10 MG/1 ML VIAL IV SCH (10:33)
[2018-05-07] MEDS: ETOPOSIDE 150 MG in SODIUM CHLORIDE 0.9% 500 ML IV SCH (11:29)
[2018-05-07 12:38] VITALS: BP 129/75
== END 2018-05-07 14:42 | disposition home or self-care (01) ==
LOC: N.4E
PROVIDERS: ADMIT Specialist; ATTEND Specialist

== ENCOUNTER 2018-06-01 07:00 | Observation (INO) ==
[2018-06-01 08:08] LABS: Basophils % 0.4 % (0.0-0.8); Eosinophils % 0.8 % (0.00-10.9); Hematocrit 31.9 VOL% (42.0-52.0); Immature Granulocytes % 1.3 %; Immature Granulocytes Absolute 0.06 #; Lymphocytes # 1.1 10*3/uL (1.4-4.0); Lymphocytes % 23.6 % (21.2-54.2); Mean Corpuscular HGB Conc 31.3 GM/DL (32-36); Mean Corpuscular Hemoglobin 32 PG (27-34); Mean Corpuscular Volume 103.2 FL (87-102); Mean Platelet Volume 9.2 FL (9.6-12.0); Monocytes # 0.5 10*3/uL (0.11-0.8); Neutrophils # 3.1 10*3/uL (1.4-7.4); Neutrophils % 63.9 % (38.7-73.9); Platelet Count 309 T/CUMM (130-400); Red Blood Count 3.09 MC/CUMM (3.8-5.5); White Blood Count 4.8 T/CUMM (4-12)
[2018-06-01 08:24] LABS: Alanine Aminotransferase 20 U/L (16-61); Albumin 3.1 G/DL (3.4-5.0); Alkaline Phosphatase 143 U/L (45-117); Aspartate Amino Transferase 19 U/L (0-37); Bilirubin,Total < 0.39 MG/DL (0.2-1.0); Blood Urea Nitrogen 22 MG/DL (7-18); Calcium 9.6 MG/DL (8.5-10.1); Glucose 107 MG/DL (74-106); Osmolality,Calculated 283.3 MOS/KG (273-304); Potassium 3.8 MMOL/L (3.5-5.1); Sodium 141 MMOL/L (136-145); Total Protein 7.3 G/DL (6.4-8.3); Uric Acid 6.2 MG/DL (3.5-7.2)
[2018-06-01] MEDS ORDERED: DEXAMETHASONE INJ 20 MG in SODIUM CHLORIDE 0.9% 50 ML IV ONE (08:44)
[2018-06-01] MEDS ORDERED: ATEZOLIZUMAB 1,200 MG in SODIUM CHLORIDE 0.9% 250 ML IV ONE (10:00)
[2018-06-01] MEDS ORDERED: HEPARIN LOCK FLUSH 500 UNIT/5 ML SYRINGE IV PRN (10:38)
[2018-06-01] MEDS: GRANISETRON 1 MG/1 ML VIAL IV SCH (13:38)
[2018-06-01] MEDS: ETOPOSIDE 120 MG in SODIUM CHLORIDE 0.9% 500 ML IV SCH (15:09)
[2018-06-01] MEDS: MIRTAZAPINE 30 MG TABLET PO SCH (20:10)
[2018-06-01] MEDS: PANTOPRAZOLE 40 MG TABLET PO SCH (20:10)
[2018-06-01] MEDS: APIXABAN 2.5 MG TABLET PO SCH (20:10)
[2018-06-01] MEDS: TAMSULOSIN 0.4 MG CAPSULE PO SCH (20:10)
[2018-06-02] MEDS ORDERED: LINZESS 72MCG PO SCH (07:30)
[2018-06-02] MEDS ORDERED: CARBOPLATIN IV ONE (09:00)
[2018-06-02] MEDS ORDERED: SODIUM CHLORIDE 0.9% IV ONE (09:00)
[2018-06-02] MEDS: APIXABAN 2.5 MG TABLET PO SCH ×2 (09:01→20:25)
[2018-06-02] MEDS: ATORVASTATIN 20 MG TABLET PO SCH (09:01)
[2018-06-02] MEDS: PANTOPRAZOLE 40 MG TABLET PO SCH ×2 (09:01→20:25)
[2018-06-02] MEDS: predniSONE 5 MG TABLET PO SCH (09:01)
[2018-06-02] MEDS: TAMSULOSIN 0.4 MG CAPSULE PO SCH ×2 (09:01→20:25)
[2018-06-02 09:56] LABS: Basophils % 0.2 % (0.0-0.8); Hematocrit 30.5 VOL% (42.0-52.0); Hemoglobin 9.7 GM/DL (14.0-18.0); Immature Granulocytes % 0.2 %; Immature Granulocytes Absolute 0.01 #; Lymphocytes # 0.7 10*3/uL (1.4-4.0); Lymphocytes % 13.7 % (21.2-54.2); Mean Corpuscular HGB Conc 31.8 GM/DL (32-36); Mean Corpuscular Hemoglobin 32 PG (27-34); Monocytes # 0.2 10*3/uL (0.11-0.8); Monocytes % 4.2 % (1.7-12.7); Neutrophils # 3.9 10*3/uL (1.4-7.4); Neutrophils % 81.7 % (38.7-73.9); Platelet Count 328 T/CUMM (130-400); Red Blood Count 2.99 MC/CUMM (3.8-5.5); Red Cell Distribution Width 13.7 % (9.3-17.3); White Blood Count 4.8 T/CUMM (4-12)
[2018-06-02 10:08] LABS: Bilirubin,Total 0.4 MG/DL (0.2-1.0); Calcium 9.3 MG/DL (8.5-10.1); Osmolality,Calculated 288.3 MOS/KG (273-304); Potassium 4.6 MMOL/L (3.5-5.1); Total Protein 6.8 G/DL (6.4-8.3)
[2018-06-02] MEDS: GRANISETRON 1 MG/1 ML VIAL IV SCH (13:04)
[2018-06-02] MEDS: ETOPOSIDE 120 MG in SODIUM CHLORIDE 0.9% 500 ML IV SCH (13:51)
[2018-06-02] MEDS: MIRTAZAPINE 30 MG TABLET PO SCH (20:25)
[2018-06-03] MEDS ORDERED: ALUMINUM/MAGNES/SIMETH MAX STR 30 ML UDCUP PO PRN (01:02)
[2018-06-03] MEDS: TAMSULOSIN 0.4 MG CAPSULE PO SCH (09:11)
[2018-06-03] MEDS: PANTOPRAZOLE 40 MG TABLET PO SCH (09:11)
[2018-06-03] MEDS: ATORVASTATIN 20 MG TABLET PO SCH (09:11)
[2018-06-03] MEDS: GRANISETRON 1 MG/1 ML VIAL IV SCH (09:12)
[2018-06-03] MEDS: predniSONE 5 MG TABLET PO SCH (09:12)
[2018-06-03] MEDS: APIXABAN 2.5 MG TABLET PO SCH (09:12)
[2018-06-03] MEDS: ETOPOSIDE 120 MG in SODIUM CHLORIDE 0.9% 500 ML IV SCH (10:24)
[2018-06-03 16:40] VITALS: BP 129/56
== END 2018-06-03 17:40 | disposition home or self-care (01) ==
LOC: N.4E
PROVIDERS: ADMIT Specialist; ATTEND Specialist

== ENCOUNTER 2018-06-10 15:12 | Inpatient (IN) ==
[2018-06-10 16:00] LABS: Basophils % 0.4 % (0.0-0.8); Eosinophils % 0.8 % (0.00-10.9); Hematocrit 21.7 VOL% (42.0-52.0); Hemoglobin 7.1 GM/DL (14.0-18.0); Immature Granulocytes % 0.8 %; Immature Granulocytes Absolute 0.02 #; Lymphocytes # 0.8 10*3/uL (1.4-4.0); Lymphocytes % 33.9 % (21.2-54.2); Mean Corpuscular HGB Conc 32.7 GM/DL (32-36); Mean Corpuscular Volume 98.6 FL (87-102); Mean Platelet Volume 9.2 FL (9.6-12.0); Monocytes % 5.1 % (1.7-12.7); Platelet Count 106 T/CUMM (130-400); Red Cell Distribution Width 12.9 % (9.3-17.3); White Blood Count 2.4 T/CUMM (4-12)
[2018-06-10] MEDS ORDERED: SODIUM CHLORIDE 0.9% 1,000 ML IV PRN (16:25)
[2018-06-10 16:39] LABS: Microcytosis 2+; Ovalocytes Few
[2018-06-10 16:40] LABS: Hypochromasia 1+; Platelet Estimate Adequate
[2018-06-10 16:44] LABS: Alanine Aminotransferase 18 U/L (16-61); Albumin 2.9 G/DL (3.4-5.0); Alkaline Phosphatase 87 U/L (45-117); Aspartate Amino Transferase 15 U/L (0-37); Bilirubin,Total < 0.39 MG/DL (0.2-1.0); Blood Urea Nitrogen 54 MG/DL (7-18); Calcium 9.2 MG/DL (8.5-10.1); Glucose 87 MG/DL (74-106); Osmolality,Calculated 283.1 MOS/KG (273-304); Total Protein 6.1 G/DL (6.4-8.3)
[2018-06-10 17:13] LABS: Apearance,Urine CLEAR (Clear); Bacteria,Urine Occasional /HPF (Few); Bilirubin,Urine Negative (Negative); Blood, Urine Negative (Negative); Glucose,Urine (UA) Negative (Negative); Ketones,Urine Negative (Negative); Mucus,Urine Occasional /LPF (Occasional); Nitrite,Urine Negative (Negative); Protein,Urine 100 MG/DL; RBC,Urine 1 /HPF (0-4); Urine Color Yellow (Yellow); Urine Specific Gravity 1.013 (1.001-1.035); Urine Urobilinogen < 2.0 EU/DL (0.2-1.0); WBC,Urine <1 /HPF (0-6)
[2018-06-10] MEDS ORDERED: SODIUM CHLORIDE 0.9% 500 ML IV STA (17:16)
[2018-06-10] MEDS: TAMSULOSIN 0.4 MG CAPSULE PO SCH (20:35)
[2018-06-10] MEDS: PANTOPRAZOLE 40 MG TABLET PO SCH (20:35)
[2018-06-10] MEDS: MIRTAZAPINE 30 MG TABLET PO SCH (20:35)
[2018-06-10] MEDS: APIXABAN 2.5 MG TABLET PO SCH (20:35)
[2018-06-10] MEDS ORDERED: [UNRECOGNIZED DRUG - OTHER] PO SCH (21:00)
[2018-06-11] MEDS: DEXTROSE 5% NACL 0.22% 1,000 ML IV SCH ×2 (03:00→04:07)
[2018-06-11 06:07] LABS: Hematocrit 23.8 VOL% (42.0-52.0); Hemoglobin 7.9 GM/DL (14.0-18.0)
[2018-06-11] MEDS ORDERED: SODIUM CHLORIDE 0.9% 1,000 ML IV PRN (07:25)
[2018-06-11] MEDS ORDERED: FUROSEMIDE 20 MG/2 ML VIAL IV ONE ×2 (07:26→16:00)
[2018-06-11] MEDS ORDERED: NON-FORMULARY MEDICATION (Linaclotide [Linzess] 72 MCG) PO SCH (09:00)
[2018-06-11] MEDS: predniSONE 5 MG TABLET PO SCH (09:08)
[2018-06-11] MEDS: APIXABAN 2.5 MG TABLET PO SCH ×2 (09:08→20:55)
[2018-06-11] MEDS: PANTOPRAZOLE 40 MG TABLET PO SCH ×2 (09:08→20:54)
[2018-06-11] MEDS: ATORVASTATIN 20 MG TABLET PO SCH (09:08)
[2018-06-11] MEDS: TAMSULOSIN 0.4 MG CAPSULE PO SCH ×2 (09:08→20:54)
[2018-06-11 10:06] LABS: Albumin 2.5 G/DL (3.4-5.0); Bilirubin,Total 0.7 MG/DL (0.2-1.0); Osmolality,Calculated 288.7 MOS/KG (273-304); Total Protein 5.7 G/DL (6.4-8.3)
[2018-06-11] MEDS: ESCITALOPRAM 10 MG TABLET PO SCH (13:04)
[2018-06-11] MEDS: MIRTAZAPINE 30 MG TABLET PO SCH (20:55)
[2018-06-11] MEDS ORDERED: DOXEPIN 25 MG CAPSULE PO SCH (21:00)
[2018-06-11] MEDS: DEXTROSE 5% NACL 0.22% 500 ML IV SCH (22:13)
[2018-06-12] MEDS: DEXTROSE 5% NACL 0.22% 500 ML IV SCH ×2 (03:11→10:06)
[2018-06-12 04:54] LABS: Basophils % 0.7 % (0.0-0.8); Eosinophils % 1.4 % (0.00-10.9); Hematocrit 30.5 VOL% (42.0-52.0); Hemoglobin 10.3 GM/DL (14.0-18.0); Lymphocytes # 0.7 10*3/uL (1.4-4.0); Lymphocytes % 51.1 % (21.2-54.2); Mean Corpuscular HGB Conc 33.8 GM/DL (32-36); Mean Corpuscular Volume 92.7 FL (87-102); Mean Platelet Volume 9.7 FL (9.6-12.0); Monocytes % 11.5 % (1.7-12.7); Neutrophils % 35.3 % (38.7-73.9); Platelet Count 98 T/CUMM (130-400); Red Blood Count 3.29 MC/CUMM (3.8-5.5); Red Cell Distribution Width 14.4 % (9.3-17.3); White Blood Count 1.4 T/CUMM (4-12)
[2018-06-12 05:25] LABS: Albumin 2.7 G/DL (3.4-5.0); Bilirubin,Total 1.4 MG/DL (0.2-1.0); Calcium 9.5 MG/DL (8.5-10.1); Osmolality,Calculated 281.8 MOS/KG (273-304); Total Protein 6.1 G/DL (6.4-8.3)
[2018-06-12 06:26] LABS: Lymphocytes 59 % (20-55); Metamyelocytes 5 %; Myelocytes 9 %; Platelet Estimate Decreased; Polychromasia Few; Segmented Neutrophils 23 % (50-85); Total Cells Counted 101
[2018-06-12] MEDS ORDERED: FILGRASTIM-SNDZ 300 MCG/0.5 ML SYRINGE SUBCUT SCH (09:00)
[2018-06-12] MEDS: ESCITALOPRAM 10 MG TABLET PO SCH (09:27)
[2018-06-12] MEDS: ATORVASTATIN 20 MG TABLET PO SCH (09:27)
[2018-06-12] MEDS: APIXABAN 2.5 MG TABLET PO SCH (09:27)
[2018-06-12] MEDS: TAMSULOSIN 0.4 MG CAPSULE PO SCH (09:27)
[2018-06-12] MEDS: predniSONE 5 MG TABLET PO SCH (09:27)
[2018-06-12] MEDS: PANTOPRAZOLE 40 MG TABLET PO SCH (09:27)
[2018-06-12] MEDS ORDERED: HEPARIN LOCK FLUSH 500 UNIT/5 ML SYRINGE IV ONE (09:33)
[2018-06-12 10:02] VITALS: BP 140/60
== END 2018-06-12 11:10 | disposition home health service (06) | DRG 812 ==
LOC: EDUNIT# → N.EDINP 15:12 → N.ED 15:12 → N.4E 18:20
PROVIDERS: ADMIT Internal Medicine; ATTEND Internal Medicine

== ENCOUNTER 2018-07-21 15:50 | Inpatient (IN) ==
[2018-07-21] MEDS ORDERED: SODIUM CHLORIDE 0.9% 1,000 ML IV STA ×2 (16:23→18:22)
[2018-07-21 16:47] LABS: Basophils % 0.3 % (0.0-0.8); Eosinophils % 0.1 % (0.00-10.9); Hematocrit 32.9 VOL% (42.0-52.0); Hemoglobin 10.7 GM/DL (14.0-18.0); Immature Granulocytes % 0.5 %; Immature Granulocytes Absolute 0.06 #; Lymphocytes % 8.4 % (21.2-54.2); Mean Corpuscular HGB Conc 32.5 GM/DL (32-36); Mean Corpuscular Volume 98.8 FL (87-102); Mean Platelet Volume 9.3 FL (9.6-12.0); Monocytes % 6.5 % (1.7-12.7); Neutrophils % 84.2 % (38.7-73.9); Platelet Count 159 T/CUMM (130-400); Red Blood Count 3.33 MC/CUMM (3.8-5.5); Red Cell Distribution Width 14.9 % (9.3-17.3); White Blood Count 11.8 T/CUMM (4-12)
[2018-07-21 17:14] LABS: Bilirubin,Total 0.9 MG/DL (0.2-1.0); Calcium 9.6 MG/DL (8.5-10.1); Osmolality,Calculated 278.7 MOS/KG (273-304); Total Protein 6.9 G/DL (6.4-8.3)
[2018-07-21] MEDS ORDERED: MORPHINE 4 MG/1 ML VIAL IV PRN (17:52)
[2018-07-21] MEDS ORDERED: ONDANSETRON 4 MG/2 ML VIAL IV PRN (17:52)
[2018-07-21] MEDS: TAMSULOSIN 0.4 MG CAPSULE PO SCH (19:43)
[2018-07-21] MEDS: SODIUM CHLORIDE 0.9% 1,000 ML IV SCH (19:44)
[2018-07-21] MEDS: APIXABAN 2.5 MG TABLET PO SCH (21:10)
[2018-07-21] MEDS: DOXEPIN 25 MG CAPSULE PO SCH (21:10)
[2018-07-21] MEDS: MIRTAZAPINE 30 MG TABLET PO SCH (21:10)
[2018-07-21] MEDS: DOCUSATE SODIUM 100 MG CAPSULE PO SCH (21:10)
[2018-07-21] MEDS: PANTOPRAZOLE 40 MG TABLET PO SCH (21:10)
[2018-07-21] MEDS ORDERED: hydrALAZINE 25 MG TABLET PO ONE (22:50)
[2018-07-21 23:21] LABS: Apearance,Urine CLEAR (Clear); Bilirubin,Urine Negative (Negative); Blood, Urine Negative (Negative); Glucose,Urine (UA) Negative (Negative); Ketones,Urine Negative (Negative); Mucus,Urine Occasional /LPF (Occasional); Nitrite,Urine Negative (Negative); Protein,Urine 100 MG/DL; RBC,Urine 3 /HPF (0-4); Urine Color Yellow (Yellow); Urine Specific Gravity 1.014 (1.001-1.035); Urine Urobilinogen < 2.0 EU/DL (0.2-1.0); WBC,Urine 1 /HPF (0-6)
[2018-07-22] MEDS: SODIUM CHLORIDE 0.9% 1,000 ML IV SCH ×2 (04:31→16:08)
[2018-07-22 05:34] LABS: Eosinophils # 0.1 10*3/uL (0.0-0.87); Eosinophils % 1.2 % (0.00-10.9); Hematocrit 29.7 VOL% (42.0-52.0); Immature Granulocytes % 0.1 %; Immature Granulocytes Absolute 0.01 #; Lymphocytes # 0.8 10*3/uL (1.4-4.0); Lymphocytes % 10.2 % (21.2-54.2); Mean Corpuscular HGB Conc 33.7 GM/DL (32-36); Mean Platelet Volume 9.7 FL (9.6-12.0); Monocytes % 7.5 % (1.7-12.7); Platelet Count 145 T/CUMM (130-400); Red Blood Count 3.03 MC/CUMM (3.8-5.5); Red Cell Distribution Width 15.2 % (9.3-17.3); White Blood Count 7.6 T/CUMM (4-12)
[2018-07-22 05:46] LABS: Albumin 2.7 G/DL (3.4-5.0); Bilirubin,Total 1.4 MG/DL (0.2-1.0); Calcium 9.4 MG/DL (8.5-10.1); Osmolality,Calculated 280.4 MOS/KG (273-304); Total Protein 6.2 G/DL (6.4-8.3)
[2018-07-22] MEDS ORDERED: NON-FORMULARY MEDICATION (Linaclotide [Linzess] 72 MCG) PO SCH (09:00)
[2018-07-22] MEDS: ESCITALOPRAM 10 MG TABLET PO SCH (09:30)
[2018-07-22] MEDS: ATORVASTATIN 20 MG TABLET PO SCH (09:31)
[2018-07-22] MEDS: DOCUSATE SODIUM 100 MG CAPSULE PO SCH ×2 (09:32→21:20)
[2018-07-22] MEDS: FLUCONAZOLE 100 MG TABLET PO SCH (09:33)
[2018-07-22] MEDS: predniSONE 5 MG TABLET PO SCH (09:33)
[2018-07-22] MEDS: APIXABAN 2.5 MG TABLET PO SCH ×2 (09:33→21:20)
[2018-07-22] MEDS: PANTOPRAZOLE 40 MG TABLET PO SCH ×2 (09:34→21:20)
[2018-07-22] MEDS: TAMSULOSIN 0.4 MG CAPSULE PO SCH ×2 (09:34→21:20)
[2018-07-22] MEDS: VANCOMYCIN INJ 1,000 MG in SODIUM CHLORIDE 0.9% 250 ML IV SCH ×2 (09:35→21:17)
[2018-07-22] MEDS: MIRTAZAPINE 30 MG TABLET PO SCH (21:20)
[2018-07-22] MEDS: DOXEPIN 25 MG CAPSULE PO SCH (21:20)
[2018-07-23] MEDS: SODIUM CHLORIDE 0.9% 1,000 ML IV SCH ×3 (02:54→19:13)
[2018-07-23 07:32] LABS: Basophils % 0.1 % (0.0-0.8); Eosinophils # 0.1 10*3/uL (0.0-0.87); Eosinophils % 1.4 % (0.00-10.9); Hematocrit 29.4 VOL% (42.0-52.0); Hemoglobin 9.4 GM/DL (14.0-18.0); Immature Granulocytes % 0.3 %; Immature Granulocytes Absolute 0.02 #; Lymphocytes # 0.7 10*3/uL (1.4-4.0); Lymphocytes % 9.9 % (21.2-54.2); Mean Platelet Volume 9.6 FL (9.6-12.0); Neutrophils % 79.3 % (38.7-73.9); Platelet Count 159 T/CUMM (130-400); Red Blood Count 2.94 MC/CUMM (3.8-5.5); Red Cell Distribution Width 15.5 % (9.3-17.3); White Blood Count 7.2 T/CUMM (4-12)
[2018-07-23 08:03] LABS: Albumin 2.5 G/DL (3.4-5.0); Bilirubin,Total 0.6 MG/DL (0.2-1.0); Calcium 9.1 MG/DL (8.5-10.1); Osmolality,Calculated 283.3 MOS/KG (273-304); Total Protein 6.1 G/DL (6.4-8.3)
[2018-07-23] MEDS ORDERED: MAGNESIUM SULF RIDER 4 GM in PREMIX 1 EACH IV PRN (08:14)
[2018-07-23] MEDS ORDERED: MAGNESIUM SULF RIDER 2 GM in PREMIX 1 EACH IV PRN (08:14)
[2018-07-23] MEDS: ATORVASTATIN 20 MG TABLET PO SCH (13:53)
[2018-07-23] MEDS: ESCITALOPRAM 10 MG TABLET PO SCH (13:55)
[2018-07-23] MEDS: predniSONE 5 MG TABLET PO SCH (13:55)
[2018-07-23] MEDS: TAMSULOSIN 0.4 MG CAPSULE PO SCH ×2 (13:55→18:29)
[2018-07-23] MEDS: FLUCONAZOLE 100 MG TABLET PO SCH (13:56)
[2018-07-23] MEDS: DOCUSATE SODIUM 100 MG CAPSULE PO SCH ×2 (13:56→20:33)
[2018-07-23] MEDS: APIXABAN 2.5 MG TABLET PO SCH ×2 (13:56→20:32)
[2018-07-23] MEDS: PANTOPRAZOLE 40 MG TABLET PO SCH ×2 (13:56→20:33)
[2018-07-23] MEDS: VANCOMYCIN INJ 1,000 MG in SODIUM CHLORIDE 0.9% 250 ML IV SCH (14:48)
[2018-07-23] MEDS: POTASSIUM CHLORIDE RIDER 20 MEQ in PREMIX 1 EACH IV PRN ×2 (15:16→17:43)
[2018-07-23] MEDS ORDERED: BISACODYL 5 MG TABLET PO ONE (15:29)
[2018-07-23] MEDS: DOXEPIN 25 MG CAPSULE PO SCH (20:32)
[2018-07-23] MEDS: MIRTAZAPINE 30 MG TABLET PO SCH (20:33)
[2018-07-23] MEDS: PIPERACILLIN/TAZOBACTAM 3,375 MG in SODIUM CHLORIDE 0.9% 100 ML IV SCH (21:45)
[2018-07-24] MEDS: VANCOMYCIN INJ 1,000 MG in SODIUM CHLORIDE 0.9% 250 ML IV SCH ×2 (02:25→13:58)
[2018-07-24 04:59] LABS: Basophils % 0.2 % (0.0-0.8); Eosinophils # 0.1 10*3/uL (0.0-0.87); Eosinophils % 1.3 % (0.00-10.9); Hematocrit 28.9 VOL% (42.0-52.0); Hemoglobin 9.4 GM/DL (14.0-18.0); Immature Granulocytes % 0.5 %; Immature Granulocytes Absolute 0.03 #; Lymphocytes # 0.9 10*3/uL (1.4-4.0); Lymphocytes % 14.6 % (21.2-54.2); Mean Corpuscular HGB Conc 32.5 GM/DL (32-36); Mean Corpuscular Volume 98.6 FL (87-102); Mean Platelet Volume 9.3 FL (9.6-12.0); Monocytes % 10.1 % (1.7-12.7); Neutrophils % 73.3 % (38.7-73.9); Platelet Count 169 T/CUMM (130-400); Red Blood Count 2.93 MC/CUMM (3.8-5.5); Red Cell Distribution Width 15.2 % (9.3-17.3)
[2018-07-24 05:30] LABS: Albumin 2.5 G/DL (3.4-5.0); Bilirubin,Total 0.9 MG/DL (0.2-1.0); Calcium 9.3 MG/DL (8.5-10.1); Osmolality,Calculated 278.5 MOS/KG (273-304); Total Protein 6.1 G/DL (6.4-8.3)
[2018-07-24] MEDS: PIPERACILLIN/TAZOBACTAM 3,375 MG in SODIUM CHLORIDE 0.9% 100 ML IV SCH (05:49)
[2018-07-24] MEDS: SODIUM CHLORIDE 0.9% 1,000 ML IV SCH ×2 (05:53→20:38)
[2018-07-24] MEDS: MULTIVITAMIN (BEROCCA) TABLET PO SCH (08:06)
[2018-07-24] MEDS: FLUCONAZOLE 100 MG TABLET PO SCH (08:06)
[2018-07-24] MEDS: predniSONE 5 MG TABLET PO SCH (08:06)
[2018-07-24] MEDS: PANTOPRAZOLE 40 MG TABLET PO SCH ×2 (08:06→20:28)
[2018-07-24] MEDS: DOCUSATE SODIUM 100 MG CAPSULE PO SCH ×2 (08:06→20:28)
[2018-07-24] MEDS: ATORVASTATIN 20 MG TABLET PO SCH (08:06)
[2018-07-24] MEDS: TAMSULOSIN 0.4 MG CAPSULE PO SCH ×2 (08:06→17:48)
[2018-07-24] MEDS: APIXABAN 2.5 MG TABLET PO SCH ×2 (08:06→20:28)
[2018-07-24] MEDS: ESCITALOPRAM 10 MG TABLET PO SCH (08:06)
[2018-07-24] MEDS: POTASSIUM CHLORIDE RIDER 20 MEQ in PREMIX 1 EACH IV PRN (10:25)
[2018-07-24] MEDS: DOXEPIN 25 MG CAPSULE PO SCH (20:28)
[2018-07-24] MEDS: MIRTAZAPINE 30 MG TABLET PO SCH (20:28)
[2018-07-25] MEDS: VANCOMYCIN INJ 1,000 MG in SODIUM CHLORIDE 0.9% 250 ML IV SCH ×2 (01:28→13:31)
[2018-07-25 05:19] LABS: Basophils % 0.4 % (0.0-0.8); Eosinophils # 0.2 10*3/uL (0.0-0.87); Eosinophils % 3.4 % (0.00-10.9); Hematocrit 26.1 VOL% (42.0-52.0); Hemoglobin 8.6 GM/DL (14.0-18.0); Immature Granulocytes % 0.2 %; Immature Granulocytes Absolute 0.01 #; Lymphocytes # 0.9 10*3/uL (1.4-4.0); Lymphocytes % 17.2 % (21.2-54.2); Mean Corpuscular Volume 97.4 FL (87-102); Mean Platelet Volume 9.7 FL (9.6-12.0); Monocytes % 9.1 % (1.7-12.7); Neutrophils % 69.7 % (38.7-73.9); Platelet Count 184 T/CUMM (130-400); Red Blood Count 2.68 MC/CUMM (3.8-5.5); Red Cell Distribution Width 15.3 % (9.3-17.3); White Blood Count 5.1 T/CUMM (4-12)
[2018-07-25 05:51] LABS: Albumin 2.1 G/DL (3.4-5.0); Bilirubin,Total 0.7 MG/DL (0.2-1.0); Calcium 9.3 MG/DL (8.5-10.1); Total Protein 5.4 G/DL (6.4-8.3)
[2018-07-25] MEDS: APIXABAN 2.5 MG TABLET PO SCH ×2 (10:19→21:15)
[2018-07-25] MEDS: PANTOPRAZOLE 40 MG TABLET PO SCH ×2 (10:19→21:15)
[2018-07-25] MEDS: FLUCONAZOLE 100 MG TABLET PO SCH (10:19)
[2018-07-25] MEDS: predniSONE 5 MG TABLET PO SCH (10:19)
[2018-07-25] MEDS: ESCITALOPRAM 10 MG TABLET PO SCH (10:19)
[2018-07-25] MEDS: MULTIVITAMIN (BEROCCA) TABLET PO SCH (10:19)
[2018-07-25] MEDS: TAMSULOSIN 0.4 MG CAPSULE PO SCH ×2 (10:19→21:15)
[2018-07-25] MEDS: DOCUSATE SODIUM 100 MG CAPSULE PO SCH ×2 (10:20→21:15)
[2018-07-25] MEDS: SODIUM CHLORIDE 0.9% 1,000 ML IV SCH ×2 (10:27→14:47)
[2018-07-25] MEDS: ATORVASTATIN 20 MG TABLET PO SCH (10:27)
[2018-07-25] MEDS: DOXEPIN 25 MG CAPSULE PO SCH (21:15)
[2018-07-25] MEDS: MIRTAZAPINE 30 MG TABLET PO SCH (21:15)
[2018-07-26] MEDS: VANCOMYCIN INJ 1,000 MG in SODIUM CHLORIDE 0.9% 250 ML IV SCH ×2 (01:58→14:03)
[2018-07-26 05:00] LABS: Basophils % 0.2 % (0.0-0.8); Eosinophils # 0.2 10*3/uL (0.0-0.87); Eosinophils % 4.1 % (0.00-10.9); Hematocrit 27.1 VOL% (42.0-52.0); Hemoglobin 8.8 GM/DL (14.0-18.0); Immature Granulocytes % 0.4 %; Immature Granulocytes Absolute 0.02 #; Lymphocytes % 18.7 % (21.2-54.2); Mean Corpuscular HGB Conc 32.5 GM/DL (32-36); Mean Corpuscular Volume 97.8 FL (87-102); Mean Platelet Volume 9.6 FL (9.6-12.0); Monocytes % 7.3 % (1.7-12.7); Neutrophils % 69.3 % (38.7-73.9); Platelet Count 187 T/CUMM (130-400); Red Blood Count 2.77 MC/CUMM (3.8-5.5); Red Cell Distribution Width 15.5 % (9.3-17.3); White Blood Count 5.1 T/CUMM (4-12)
[2018-07-26 05:21] LABS: Albumin 2.2 G/DL (3.4-5.0); Bilirubin,Total 0.6 MG/DL (0.2-1.0); Calcium 9.2 MG/DL (8.5-10.1); Osmolality,Calculated 286.8 MOS/KG (273-304); Total Protein 5.7 G/DL (6.4-8.3)
[2018-07-26] MEDS: predniSONE 5 MG TABLET PO SCH (09:08)
[2018-07-26] MEDS: PANTOPRAZOLE 40 MG TABLET PO SCH ×2 (09:08→20:47)
[2018-07-26] MEDS: APIXABAN 2.5 MG TABLET PO SCH ×2 (09:08→20:47)
[2018-07-26] MEDS: MULTIVITAMIN (BEROCCA) TABLET PO SCH (09:08)
[2018-07-26] MEDS: ATORVASTATIN 20 MG TABLET PO SCH (09:08)
[2018-07-26] MEDS: TAMSULOSIN 0.4 MG CAPSULE PO SCH ×2 (09:08→17:55)
[2018-07-26] MEDS: FLUCONAZOLE 100 MG TABLET PO SCH (09:08)
[2018-07-26] MEDS: ESCITALOPRAM 10 MG TABLET PO SCH (09:08)
[2018-07-26] MEDS: DOCUSATE SODIUM 100 MG CAPSULE PO SCH ×2 (09:08→20:47)
[2018-07-26] MEDS: SODIUM CHLORIDE 0.9% 1,000 ML IV SCH ×3 (09:09→20:45)
[2018-07-26] MEDS: MIRTAZAPINE 30 MG TABLET PO SCH (20:46)
[2018-07-26] MEDS: DOXEPIN 25 MG CAPSULE PO SCH (20:46)
[2018-07-27] MEDS: VANCOMYCIN INJ 1,000 MG in SODIUM CHLORIDE 0.9% 250 ML IV SCH ×2 (01:48→16:37)
[2018-07-27 04:51] LABS: Basophils % 0.3 % (0.0-0.8); Eosinophils # 0.2 10*3/uL (0.0-0.87); Eosinophils % 3.7 % (0.00-10.9); Hemoglobin 9.2 GM/DL (14.0-18.0); Immature Granulocytes % 0.3 %; Immature Granulocytes Absolute 0.02 #; Lymphocytes # 1.1 10*3/uL (1.4-4.0); Lymphocytes % 17.2 % (21.2-54.2); Mean Corpuscular HGB Conc 32.9 GM/DL (32-36); Mean Corpuscular Volume 97.9 FL (87-102); Mean Platelet Volume 9.5 FL (9.6-12.0); Monocytes % 8.4 % (1.7-12.7); Neutrophils % 70.1 % (38.7-73.9); Platelet Count 219 T/CUMM (130-400); Red Blood Count 2.86 MC/CUMM (3.8-5.5); Red Cell Distribution Width 15.3 % (9.3-17.3); White Blood Count 6.2 T/CUMM (4-12)
[2018-07-27 05:15] LABS: Albumin 2.3 G/DL (3.4-5.0); Bilirubin,Total 0.9 MG/DL (0.2-1.0); Calcium 9.5 MG/DL (8.5-10.1); Total Protein 5.9 G/DL (6.4-8.3)
[2018-07-27] MEDS: ESCITALOPRAM 10 MG TABLET PO SCH (09:32)
[2018-07-27] MEDS: APIXABAN 2.5 MG TABLET PO SCH ×2 (09:32→20:40)
[2018-07-27] MEDS: DOCUSATE SODIUM 100 MG CAPSULE PO SCH ×2 (09:32→20:40)
[2018-07-27] MEDS: MULTIVITAMIN (BEROCCA) TABLET PO SCH (09:33)
[2018-07-27] MEDS: PANTOPRAZOLE 40 MG TABLET PO SCH ×2 (09:33→20:41)
[2018-07-27] MEDS: ATORVASTATIN 20 MG TABLET PO SCH (09:33)
[2018-07-27] MEDS: TAMSULOSIN 0.4 MG CAPSULE PO SCH ×2 (09:33→18:58)
[2018-07-27] MEDS: predniSONE 5 MG TABLET PO SCH (09:33)
[2018-07-27] MEDS: SODIUM CHLORIDE 0.9% 1,000 ML IV SCH ×2 (09:33→16:37)
[2018-07-27] MEDS: DOXEPIN 25 MG CAPSULE PO SCH (20:41)
[2018-07-27] MEDS: MIRTAZAPINE 30 MG TABLET PO SCH (20:41)
[2018-07-28] MEDS: VANCOMYCIN INJ 1,000 MG in SODIUM CHLORIDE 0.9% 250 ML IV SCH (01:43)
[2018-07-28] MEDS: SODIUM CHLORIDE 0.9% 1,000 ML IV SCH ×2 (01:45→21:18)
[2018-07-28 04:48] LABS: Basophils % 0.2 % (0.0-0.8); Eosinophils # 0.2 10*3/uL (0.0-0.87); Eosinophils % 3.8 % (0.00-10.9); Hematocrit 28.9 VOL% (42.0-52.0); Hemoglobin 9.4 GM/DL (14.0-18.0); Immature Granulocytes % 0.7 %; Immature Granulocytes Absolute 0.04 #; Lymphocytes # 0.9 10*3/uL (1.4-4.0); Lymphocytes % 16.7 % (21.2-54.2); Mean Corpuscular HGB Conc 32.5 GM/DL (32-36); Mean Corpuscular Volume 98.6 FL (87-102); Mean Platelet Volume 9.1 FL (9.6-12.0); Neutrophils % 69.6 % (38.7-73.9); Platelet Count 201 T/CUMM (130-400); Red Blood Count 2.93 MC/CUMM (3.8-5.5); Red Cell Distribution Width 15.4 % (9.3-17.3); White Blood Count 5.6 T/CUMM (4-12)
[2018-07-28 04:57] LABS: Albumin 2.2 G/DL (3.4-5.0); Bilirubin,Total 0.6 MG/DL (0.2-1.0); Calcium 9.4 MG/DL (8.5-10.1); Osmolality,Calculated 285.1 MOS/KG (273-304); Total Protein 5.6 G/DL (6.4-8.3)
[2018-07-28] MEDS: APIXABAN 2.5 MG TABLET PO SCH ×2 (08:30→21:17)
[2018-07-28] MEDS: ATORVASTATIN 20 MG TABLET PO SCH (08:30)
[2018-07-28] MEDS: PANTOPRAZOLE 40 MG TABLET PO SCH ×2 (08:32→21:18)
[2018-07-28] MEDS: MULTIVITAMIN (BEROCCA) TABLET PO SCH (08:32)
[2018-07-28] MEDS: ESCITALOPRAM 10 MG TABLET PO SCH (08:32)
[2018-07-28] MEDS: TAMSULOSIN 0.4 MG CAPSULE PO SCH ×2 (08:32→18:36)
[2018-07-28] MEDS: predniSONE 5 MG TABLET PO SCH (08:32)
[2018-07-28] MEDS: DOCUSATE SODIUM 100 MG CAPSULE PO SCH ×2 (08:33→21:17)
[2018-07-28] MEDS: POTASSIUM CHLORIDE RIDER 20 MEQ in PREMIX 1 EACH IV PRN (08:36)
[2018-07-28] MEDS: VANCOMYCIN INJ 500 MG in SODIUM CHLORIDE 0.9% 100 ML IV SCH (12:43)
[2018-07-28] MEDS: DOXEPIN 25 MG CAPSULE PO SCH (21:17)
[2018-07-28] MEDS: MIRTAZAPINE 30 MG TABLET PO SCH (21:18)
[2018-07-29] MEDS: VANCOMYCIN INJ 500 MG in SODIUM CHLORIDE 0.9% 100 ML IV SCH ×2 (02:23→14:01)
[2018-07-29 04:51] LABS: Calcium 9.3 MG/DL (8.5-10.1); Osmolality,Calculated 285.1 MOS/KG (273-304)
[2018-07-29] MEDS: POTASSIUM CHLORIDE RIDER 10 MEQ in PREMIX 1 EACH IV PRN ×2 (06:20→15:46)
[2018-07-29 07:24] LABS: Basophils % 0.2 % (0.0-0.8); Eosinophils # 0.3 10*3/uL (0.0-0.87); Eosinophils % 4.5 % (0.00-10.9); Hematocrit 28.2 VOL% (42.0-52.0); Hemoglobin 9.1 GM/DL (14.0-18.0); Immature Granulocytes % 0.7 %; Immature Granulocytes Absolute 0.04 #; Lymphocytes % 16.4 % (21.2-54.2); Mean Corpuscular HGB Conc 32.3 GM/DL (32-36); Mean Corpuscular Volume 98.6 FL (87-102); Mean Platelet Volume 9.2 FL (9.6-12.0); Monocytes % 8.9 % (1.7-12.7); Neutrophils % 69.3 % (38.7-73.9); Platelet Count 217 T/CUMM (130-400); Red Blood Count 2.86 MC/CUMM (3.8-5.5); Red Cell Distribution Width 15.5 % (9.3-17.3); White Blood Count 5.8 T/CUMM (4-12)
[2018-07-29] MEDS: SODIUM CHLORIDE 0.9% 1,000 ML IV SCH (09:14)
[2018-07-29] MEDS: POTASSIUM CHLORIDE RIDER 20 MEQ in PREMIX 1 EACH IV PRN (09:14)
[2018-07-29] MEDS: predniSONE 5 MG TABLET PO SCH (09:16)
[2018-07-29] MEDS: ESCITALOPRAM 10 MG TABLET PO SCH (09:16)
[2018-07-29] MEDS: MULTIVITAMIN (BEROCCA) TABLET PO SCH (09:16)
[2018-07-29] MEDS: APIXABAN 2.5 MG TABLET PO SCH ×2 (09:16→20:03)
[2018-07-29] MEDS: PANTOPRAZOLE 40 MG TABLET PO SCH ×2 (09:16→20:02)
[2018-07-29] MEDS: DOCUSATE SODIUM 100 MG CAPSULE PO SCH ×2 (09:16→20:03)
[2018-07-29] MEDS: TAMSULOSIN 0.4 MG CAPSULE PO SCH ×2 (09:16→19:36)
[2018-07-29] MEDS: ATORVASTATIN 20 MG TABLET PO SCH (09:16)
[2018-07-29] MEDS: DOXEPIN 25 MG CAPSULE PO SCH (20:03)
[2018-07-29] MEDS: MIRTAZAPINE 30 MG TABLET PO SCH (20:03)
[2018-07-30] MEDS: VANCOMYCIN INJ 500 MG in SODIUM CHLORIDE 0.9% 100 ML IV SCH (00:58)
[2018-07-30] MEDS: SODIUM CHLORIDE 0.9% 1,000 ML IV SCH (05:20)
[2018-07-30 05:35] LABS: Basophils % 0.2 % (0.0-0.8); Eosinophils # 0.3 10*3/uL (0.0-0.87); Hematocrit 27.8 VOL% (42.0-52.0); Immature Granulocytes % 0.7 %; Immature Granulocytes Absolute 0.04 #; Lymphocytes # 0.8 10*3/uL (1.4-4.0); Lymphocytes % 15.3 % (21.2-54.2); Mean Corpuscular HGB Conc 32.4 GM/DL (32-36); Mean Corpuscular Volume 98.9 FL (87-102); Mean Platelet Volume 9.1 FL (9.6-12.0); Monocytes % 9.2 % (1.7-12.7); Neutrophils % 69.6 % (38.7-73.9); Platelet Count 225 T/CUMM (130-400); Red Blood Count 2.81 MC/CUMM (3.8-5.5); Red Cell Distribution Width 15.5 % (9.3-17.3); White Blood Count 5.4 T/CUMM (4-12)
[2018-07-30 06:05] LABS: Calcium 9.4 MG/DL (8.5-10.1); Osmolality,Calculated 282.3 MOS/KG (273-304)
[2018-07-30] MEDS: DOCUSATE SODIUM 100 MG CAPSULE PO SCH ×2 (11:35→21:01)
[2018-07-30] MEDS: MULTIVITAMIN (BEROCCA) TABLET PO SCH (11:35)
[2018-07-30] MEDS: APIXABAN 2.5 MG TABLET PO SCH ×2 (11:36→21:01)
[2018-07-30] MEDS: predniSONE 5 MG TABLET PO SCH (11:37)
[2018-07-30] MEDS: ATORVASTATIN 20 MG TABLET PO SCH (11:37)
[2018-07-30] MEDS: TAMSULOSIN 0.4 MG CAPSULE PO SCH ×2 (11:37→19:24)
[2018-07-30] MEDS: ESCITALOPRAM 10 MG TABLET PO SCH (11:37)
[2018-07-30] MEDS: PANTOPRAZOLE 40 MG TABLET PO SCH ×2 (11:37→21:01)
[2018-07-30] MEDS: ALBUTEROL/IPRATROPIUM 3 ML NEB RESP TX SCH ×3 (15:20→23:49)
[2018-07-30] MEDS: LEVOFLOXACIN INJ 500 MG in PREMIX 1 EACH IV SCH (15:50)
[2018-07-30] MEDS: DOXEPIN 25 MG CAPSULE PO SCH (21:01)
[2018-07-30] MEDS: MIRTAZAPINE 30 MG TABLET PO SCH (21:01)
[2018-07-31] MEDS ORDERED: VANCOMYCIN INJ 1,000 MG in SODIUM CHLORIDE 0.9% 250 ML IV SCH (01:00)
[2018-07-31 01:05] LABS: Calcium 9.3 MG/DL (8.5-10.1); Osmolality,Calculated 283.4 MOS/KG (273-304)
[2018-07-31 01:12] LABS: Basophils % 0.2 % (0.0-0.8); Eosinophils # 0.2 10*3/uL (0.0-0.87); Eosinophils % 3.6 % (0.00-10.9); Hematocrit 27.7 VOL% (42.0-52.0); Hemoglobin 9.1 GM/DL (14.0-18.0); Immature Granulocytes % 0.4 %; Immature Granulocytes Absolute 0.02 #; Lymphocytes % 20.4 % (21.2-54.2); Mean Corpuscular HGB Conc 32.9 GM/DL (32-36); Mean Corpuscular Volume 98.9 FL (87-102); Mean Platelet Volume 9.4 FL (9.6-12.0); Monocytes % 10.7 % (1.7-12.7); Neutrophils % 64.7 % (38.7-73.9); Platelet Count 239 T/CUMM (130-400); Red Cell Distribution Width 15.5 % (9.3-17.3)
[2018-07-31] MEDS: ALBUTEROL/IPRATROPIUM 3 ML NEB RESP TX SCH ×6 (04:07→23:11)
[2018-07-31] MEDS: SODIUM CHLORIDE 0.9% 1,000 ML IV SCH ×2 (07:55→08:10)
[2018-07-31] MEDS: MULTIVITAMIN (BEROCCA) TABLET PO SCH (08:58)
[2018-07-31] MEDS: APIXABAN 2.5 MG TABLET PO SCH ×2 (08:58→21:16)
[2018-07-31] MEDS: DOCUSATE SODIUM 100 MG CAPSULE PO SCH ×2 (08:58→21:16)
[2018-07-31] MEDS: predniSONE 5 MG TABLET PO SCH (08:58)
[2018-07-31] MEDS: PANTOPRAZOLE 40 MG TABLET PO SCH ×2 (08:58→21:16)
[2018-07-31] MEDS: TAMSULOSIN 0.4 MG CAPSULE PO SCH ×2 (08:58→17:03)
[2018-07-31] MEDS: ATORVASTATIN 20 MG TABLET PO SCH (08:59)
[2018-07-31] MEDS: ESCITALOPRAM 10 MG TABLET PO SCH (08:59)
[2018-07-31] MEDS ORDERED: VANCOMYCIN INJ 500 MG in SODIUM CHLORIDE 0.9% 100 ML IV SCH (09:00)
[2018-07-31] MEDS: LEVOFLOXACIN INJ 500 MG in PREMIX 1 EACH IV SCH (12:36)
[2018-07-31] MEDS: MIRTAZAPINE 30 MG TABLET PO SCH (21:16)
[2018-07-31] MEDS: DOXEPIN 25 MG CAPSULE PO SCH (21:16)
[2018-07-31] MEDS: ACETAMINOPHEN 325 MG TABLET PO PRN (21:48)
[2018-08-01] MEDS: ALBUTEROL/IPRATROPIUM 3 ML NEB RESP TX SCH ×6 (03:08→23:40)
[2018-08-01] MEDS: SODIUM CHLORIDE 0.9% 1,000 ML IV SCH ×2 (04:12→23:00)
[2018-08-01 05:15] LABS: Basophils % 0.3 % (0.0-0.8); Eosinophils # 0.2 10*3/uL (0.0-0.87); Eosinophils % 4.1 % (0.00-10.9); Hematocrit 23.1 VOL% (42.0-52.0); Hemoglobin 7.5 GM/DL (14.0-18.0); Immature Granulocytes % 0.5 %; Immature Granulocytes Absolute 0.02 #; Lymphocytes # 0.8 10*3/uL (1.4-4.0); Lymphocytes % 19.6 % (21.2-54.2); Mean Corpuscular HGB Conc 32.5 GM/DL (32-36); Mean Corpuscular Volume 100.4 FL (87-102); Mean Platelet Volume 9.5 FL (9.6-12.0); Monocytes % 11.3 % (1.7-12.7); Neutrophils % 64.2 % (38.7-73.9); Platelet Count 197 T/CUMM (130-400); Red Cell Distribution Width 16.1 % (9.3-17.3); White Blood Count 3.9 T/CUMM (4-12)
[2018-08-01 05:43] LABS: Calcium 8.6 MG/DL (8.5-10.1); Osmolality,Calculated 286.3 MOS/KG (273-304)
[2018-08-01] MEDS: APIXABAN 2.5 MG TABLET PO SCH ×2 (08:35→20:33)
[2018-08-01] MEDS: ATORVASTATIN 20 MG TABLET PO SCH (08:35)
[2018-08-01] MEDS: predniSONE 5 MG TABLET PO SCH (08:36)
[2018-08-01] MEDS: PANTOPRAZOLE 40 MG TABLET PO SCH ×2 (08:36→20:33)
[2018-08-01] MEDS: DOCUSATE SODIUM 100 MG CAPSULE PO SCH ×2 (08:36→20:34)
[2018-08-01] MEDS: MULTIVITAMIN (BEROCCA) TABLET PO SCH (08:38)
[2018-08-01] MEDS: TAMSULOSIN 0.4 MG CAPSULE PO SCH ×2 (08:38→17:39)
[2018-08-01] MEDS: ESCITALOPRAM 10 MG TABLET PO SCH (08:38)
[2018-08-01 09:33] LABS: Hematocrit 26.8 VOL% (42.0-52.0); Hemoglobin 8.5 GM/DL (14.0-18.0)
[2018-08-01] MEDS: LEVOFLOXACIN INJ 500 MG in PREMIX 1 EACH IV SCH (15:32)
[2018-08-01] MEDS: DOXEPIN 25 MG CAPSULE PO SCH (20:33)
[2018-08-01] MEDS: MIRTAZAPINE 30 MG TABLET PO SCH (20:34)
[2018-08-02] MEDS: ALBUTEROL/IPRATROPIUM 3 ML NEB RESP TX SCH ×6 (03:10→23:30)
[2018-08-02 05:37] LABS: Basophils % 0.2 % (0.0-0.8); Eosinophils # 0.2 10*3/uL (0.0-0.87); Eosinophils % 3.7 % (0.00-10.9); Hemoglobin 7.7 GM/DL (14.0-18.0); Immature Granulocytes % 0.2 %; Immature Granulocytes Absolute 0.01 #; Lymphocytes # 0.7 10*3/uL (1.4-4.0); Lymphocytes % 13.1 % (21.2-54.2); Mean Corpuscular HGB Conc 32.1 GM/DL (32-36); Mean Corpuscular Volume 101.3 FL (87-102); Mean Platelet Volume 9.3 FL (9.6-12.0); Monocytes % 8.3 % (1.7-12.7); Neutrophils % 74.5 % (38.7-73.9); Platelet Count 193 T/CUMM (130-400); Red Blood Count 2.37 MC/CUMM (3.8-5.5); Red Cell Distribution Width 16.3 % (9.3-17.3); White Blood Count 5.4 T/CUMM (4-12)
[2018-08-02 05:51] LABS: Calcium 8.5 MG/DL (8.5-10.1)
[2018-08-02 08:05] LABS: Hematocrit 24.9 VOL% (42.0-52.0); Hemoglobin 7.9 GM/DL (14.0-18.0)
[2018-08-02] MEDS: MULTIVITAMIN (BEROCCA) TABLET PO SCH (09:44)
[2018-08-02] MEDS: TAMSULOSIN 0.4 MG CAPSULE PO SCH ×2 (09:44→17:09)
[2018-08-02] MEDS: DOCUSATE SODIUM 100 MG CAPSULE PO SCH ×2 (09:46→20:39)
[2018-08-02] MEDS: PANTOPRAZOLE 40 MG TABLET PO SCH ×2 (09:46→20:39)
[2018-08-02] MEDS: APIXABAN 2.5 MG TABLET PO SCH ×2 (09:46→20:39)
[2018-08-02] MEDS: ESCITALOPRAM 10 MG TABLET PO SCH (09:47)
[2018-08-02] MEDS: ATORVASTATIN 20 MG TABLET PO SCH (09:47)
[2018-08-02] MEDS: predniSONE 5 MG TABLET PO SCH (09:48)
[2018-08-02] MEDS: POTASSIUM CHLORIDE RIDER 10 MEQ in PREMIX 1 EACH IV PRN (09:50)
[2018-08-02] MEDS: POTASSIUM CHLORIDE RIDER 20 MEQ in PREMIX 1 EACH IV PRN (10:59)
[2018-08-02] MEDS: LEVOFLOXACIN INJ 500 MG in PREMIX 1 EACH IV SCH (15:09)
[2018-08-02] MEDS: SODIUM CHLORIDE 0.9% 1,000 ML IV SCH (19:00)
[2018-08-02] MEDS: MIRTAZAPINE 30 MG TABLET PO SCH (20:39)
[2018-08-02] MEDS: DOXEPIN 25 MG CAPSULE PO SCH (20:39)
[2018-08-03] MEDS: SODIUM CHLORIDE 0.9% 1,000 ML IV SCH ×2 (00:38→20:40)
[2018-08-03] MEDS: ALBUTEROL/IPRATROPIUM 3 ML NEB RESP TX SCH ×6 (03:40→23:45)
[2018-08-03 05:04] LABS: Basophils % 0.2 % (0.0-0.8); Eosinophils # 0.2 10*3/uL (0.0-0.87); Eosinophils % 2.8 % (0.00-10.9); Hemoglobin 7.2 GM/DL (14.0-18.0); Immature Granulocytes % 0.6 %; Immature Granulocytes Absolute 0.03 #; Lymphocytes # 0.7 10*3/uL (1.4-4.0); Lymphocytes % 12.5 % (21.2-54.2); Mean Corpuscular HGB Conc 31.3 GM/DL (32-36); Mean Corpuscular Volume 103.6 FL (87-102); Mean Platelet Volume 9.3 FL (9.6-12.0); Monocytes % 10.8 % (1.7-12.7); Neutrophils % 73.1 % (38.7-73.9); Platelet Count 200 T/CUMM (130-400); Red Blood Count 2.22 MC/CUMM (3.8-5.5); Red Cell Distribution Width 16.4 % (9.3-17.3); White Blood Count 5.3 T/CUMM (4-12)
[2018-08-03 05:32] LABS: Calcium 8.9 MG/DL (8.5-10.1)
[2018-08-03] MEDS: APIXABAN 2.5 MG TABLET PO SCH ×2 (09:14→21:52)
[2018-08-03] MEDS: TAMSULOSIN 0.4 MG CAPSULE PO SCH ×2 (09:14→20:45)
[2018-08-03] MEDS: PANTOPRAZOLE 40 MG TABLET PO SCH ×2 (09:14→21:52)
[2018-08-03] MEDS: ATORVASTATIN 20 MG TABLET PO SCH (09:14)
[2018-08-03] MEDS: predniSONE 5 MG TABLET PO SCH (09:14)
[2018-08-03] MEDS: DOCUSATE SODIUM 100 MG CAPSULE PO SCH ×2 (09:14→21:51)
[2018-08-03] MEDS: MULTIVITAMIN (BEROCCA) TABLET PO SCH (09:14)
[2018-08-03] MEDS: ESCITALOPRAM 10 MG TABLET PO SCH (09:19)
[2018-08-03] MEDS: LEVOFLOXACIN INJ 500 MG in PREMIX 1 EACH IV SCH (13:43)
[2018-08-03] MEDS: MIRTAZAPINE 30 MG TABLET PO SCH (21:52)
[2018-08-03] MEDS: DOXEPIN 25 MG CAPSULE PO SCH (21:53)
[2018-08-04] MEDS: ALBUTEROL/IPRATROPIUM 3 ML NEB RESP TX SCH ×4 (03:52→14:21)
[2018-08-04] MEDS: ACETAMINOPHEN 325 MG TABLET PO PRN (04:19)
[2018-08-04 05:03] LABS: Basophils % 0.3 % (0.0-0.8); Eosinophils # 0.2 10*3/uL (0.0-0.87); Eosinophils % 2.9 % (0.00-10.9); Hematocrit 27.2 VOL% (42.0-52.0); Hemoglobin 8.7 GM/DL (14.0-18.0); Immature Granulocytes % 0.5 %; Immature Granulocytes Absolute 0.03 #; Lymphocytes # 0.6 10*3/uL (1.4-4.0); Lymphocytes % 9.4 % (21.2-54.2); Mean Corpuscular Volume 101.9 FL (87-102); Mean Platelet Volume 9.3 FL (9.6-12.0); Monocytes % 11.1 % (1.7-12.7); Neutrophils % 75.8 % (38.7-73.9); Platelet Count 218 T/CUMM (130-400); Red Blood Count 2.67 MC/CUMM (3.8-5.5); Red Cell Distribution Width 16.1 % (9.3-17.3); White Blood Count 5.9 T/CUMM (4-12)
[2018-08-04 06:26] LABS: Calcium 9.7 MG/DL (8.5-10.1); Osmolality,Calculated 284.4 MOS/KG (273-304)
[2018-08-04] MEDS: ESCITALOPRAM 10 MG TABLET PO SCH (09:38)
[2018-08-04] MEDS: PANTOPRAZOLE 40 MG TABLET PO SCH (09:38)
[2018-08-04] MEDS: APIXABAN 2.5 MG TABLET PO SCH (09:38)
[2018-08-04] MEDS: MULTIVITAMIN (BEROCCA) TABLET PO SCH (09:39)
[2018-08-04] MEDS: predniSONE 5 MG TABLET PO SCH (09:39)
[2018-08-04] MEDS: DOCUSATE SODIUM 100 MG CAPSULE PO SCH (09:39)
[2018-08-04] MEDS: ATORVASTATIN 20 MG TABLET PO SCH (09:39)
[2018-08-04] MEDS: TAMSULOSIN 0.4 MG CAPSULE PO SCH (09:39)
[2018-08-04] MEDS: LEVOFLOXACIN INJ 500 MG in PREMIX 1 EACH IV SCH (13:22)
[2018-08-04 16:59] VITALS: BP 176/89
== END 2018-08-04 17:19 | disposition swing bed (61) | DRG 871 ==
LOC: EDUNIT# → EDBD → N.ED 15:50 → N.4E 15:50 → SUATTDRO 07-22 11:14 → N.3E 07-24 14:39 → N.4E 07-27 14:30
PROVIDERS: ADMIT Hospitalist; ATTEND Internal Medicine